=== PATIENT | male | born 1950 | race Caucasian/White ===

== ENCOUNTER 2020-04-06 19:09 | Inpatient (IN) ==
[2020-04-06] MEDS ORDERED: FUROSEMIDE 100 MG/10 ML VIAL IV STA (19:32)
[2020-04-06] MEDS ORDERED: ASPIRIN 325 MG TABLET PO STA (19:32)
[2020-04-06] MEDS ORDERED: ALBUTEROL/IPRATROPIUM 3 ML NEB RESP TX STA (19:32)
[2020-04-06] MEDS ORDERED: ONDANSETRON 4 MG/2 ML VIAL IV STA (19:32)
[2020-04-06] MEDS ORDERED: MORPHINE 4 MG/1 ML VIAL IV STA (19:32)
[2020-04-06] MEDS ORDERED: NITROGLYCERIN 2% OINT 1 INCH/GM PACK TOP STA (19:32)
[2020-04-06] MEDS ORDERED: methylPREDNISolone SOD SUC 125 MG/2 ML VIAL IV STA (19:32)
[2020-04-06 19:48] LABS: Bacteria,Urine Occasional /HPF (Few); Basophils # 0.1 10*3/uL (0.0-0.2); Basophils % 0.3 % (0.0-0.8); Bilirubin,Urine Negative (Negative); Blood, Urine Negative (Negative); Eosinophils # 0.1 10*3/uL (0.0-0.87); Eosinophils % 0.4 % (0.00-10.9); Glucose,Urine (UA) Negative (Negative); Hematocrit 39.5 VOL% (42.0-52.0); Hemoglobin 13.1 GM/DL (14.0-18.0); Immature Granulocytes % 1.4 %; Immature Granulocytes Absolute 0.24 #; Ketones,Urine Negative (Negative); Lymphocytes # 0.8 10*3/uL (1.4-4.0); Lymphocytes % 4.5 % (21.2-54.2); Mean Corpuscular HGB Conc 33.2 GM/DL (32-36); Mean Corpuscular Volume 86.2 FL (87-102); Mean Platelet Volume 11.1 FL (9.6-12.0); Monocytes % 8.3 % (1.7-12.7); Mucus,Urine Occasional /LPF (Occasional); Neutrophils % 85.1 % (38.7-73.9); Nitrite,Urine Negative (Negative); Platelet Count 385 T/CUMM (130-400); Protein,Urine 30 MG/DL; RBC,Urine 2 /HPF (0-4); Red Blood Count 4.58 MC/CUMM (3.8-5.5); Red Cell Distribution Width 14.3 % (9.3-17.3); Squamous Epithelial Cell,Urine Occasional /HPF (0-10); Urine Appearance CLEAR (Clear); Urine Color Amber (Yellow); Urine Specific Gravity 1.021 (1.001-1.035); WBC,Urine 2 /HPF (0-6); White Blood Count 16.7 T/CUMM (4-12)
[2020-04-06 19:52] LABS: INR 1.6; PT Patient Result 16.7 SECS (9.8-11.9)
[2020-04-06 20:04] LABS: ABG Base Excess 3.3 MMOL/L (-2.5-2.5); ABG Oxygen Saturation 94.4 % (95-100); ABG PCO2 29.8 MM HG (35-48); ABG PH 7.542 (7.35-7.45); ABG PO2 68.4 MM HG (80-95); ABG TCO2 25.9 MMOL/L (23-27); Allen Test Positive
[2020-04-06 20:08] LABS: Albumin 2.5 G/DL (3.4-5.0); Calcium 8.8 MG/DL (8.5-10.1); Osmolality,Calculated 269.1 MOS/KG (273-304); Potassium 3.6 MMOL/L (3.5-5.1); Total Protein 7.5 G/DL (6.4-8.3)
[2020-04-06] MEDS ORDERED: PIPERACILLIN/TAZOBACTAM 3,375 MG in SODIUM CHLORIDE 0.9% 100 ML IV STA (20:14)
[2020-04-06 20:35] LABS: Ferritin 1369.8 ng/ml (26-388)
[2020-04-06 20:56] LABS: Band Neutrophils 1 % (0-10); Lymphocytes 9 % (20-55); Platelet Estimate Normal; Segmented Neutrophils 83 % (50-85); Total Cells Counted 100
[2020-04-06] MEDS ORDERED: ALBUTEROL 2.5 MG/3 ML NEB RESP TX PRN (21:49)
[2020-04-06] MEDS ORDERED: ONDANSETRON 4 MG/2 ML VIAL IV PRN (21:49)
[2020-04-06] MEDS: LACTATED RINGERS 1,000 ML IV SCH (23:12)
[2020-04-07] MEDS: SOTALOL 80 MG TABLET PO SCH ×3 (00:47→21:11)
[2020-04-07 05:43] LABS: Basophils % 0.2 % (0.0-0.8); Hematocrit 36.3 VOL% (42.0-52.0); Hemoglobin 12.1 GM/DL (14.0-18.0); Immature Granulocytes % 0.9 %; Immature Granulocytes Absolute 0.11 #; Lymphocytes # 0.5 10*3/uL (1.4-4.0); Lymphocytes % 3.6 % (21.2-54.2); Mean Corpuscular HGB Conc 33.3 GM/DL (32-36); Mean Corpuscular Volume 86.4 FL (87-102); Mean Platelet Volume 11.3 FL (9.6-12.0); Monocytes % 2.2 % (1.7-12.7); Neutrophils % 93.1 % (38.7-73.9); Platelet Count 341 T/CUMM (130-400); Red Cell Distribution Width 14.1 % (9.3-17.3); White Blood Count 12.5 T/CUMM (4-12)
[2020-04-07 05:59] LABS: Bilirubin,Total 1.4 MG/DL (0.2-1.0); Calcium 8.5 MG/DL (8.5-10.1); Potassium 3.3 MMOL/L (3.5-5.1); Total Protein 7.2 G/DL (6.4-8.3)
[2020-04-07 06:16] LABS: Hypochromasia 1+; Lymphocytes 2 % (20-55); Microcytosis 1+; Platelet Estimate Adequate; Segmented Neutrophils 95 % (50-85); Total Cells Counted 100
[2020-04-07] MEDS ORDERED: INFLUENZA VIRUS VACCINE 0.5 ML SYRINGE IM ONE (09:00)
[2020-04-07] MEDS ORDERED: PNEUMOCOCCAL VACCINE (13 VALENT) 0.5 ML SYRINGE IM ONE (09:00)
[2020-04-07] MEDS ORDERED: REMDESIVIR 200 MG in SODIUM CHLORIDE 0.9% 210 ML IV ONE (09:00)
[2020-04-07] MEDS: ASPIRIN EC 81 MG TABLET PO SCH (09:16)
[2020-04-07] MEDS: PANTOPRAZOLE 40 MG TABLET PO SCH (09:16)
[2020-04-07] MEDS: RIVAROXABAN 20 MG TABLET PO SCH (09:17)
[2020-04-07] MEDS: DEXAMETHASONE 4 MG/1 ML VIAL IV SCH (09:27)
[2020-04-07] MEDS: LACTATED RINGERS 1,000 ML IV SCH ×2 (09:28→18:47)
[2020-04-07] MEDS ORDERED: SODIUM CHLORIDE 0.9% 1,000 ML IV PRN (14:32)
[2020-04-07] MEDS: MORPHINE 4 MG/1 ML VIAL IV PRN (21:10)
[2020-04-07] MEDS: ATORVASTATIN 40 MG TABLET PO SCH (21:12)
[2020-04-08] MEDS: LACTATED RINGERS 1,000 ML IV SCH ×3 (00:59→22:33)
[2020-04-08] MEDS: MORPHINE 4 MG/1 ML VIAL IV PRN (01:00)
[2020-04-08] MEDS: DEXAMETHASONE 4 MG/1 ML VIAL IV SCH (10:18)
[2020-04-08] MEDS: ASPIRIN EC 81 MG TABLET PO SCH (10:18)
[2020-04-08] MEDS: SOTALOL 80 MG TABLET PO SCH ×2 (10:18→20:33)
[2020-04-08] MEDS: RIVAROXABAN 20 MG TABLET PO SCH (10:18)
[2020-04-08] MEDS: PANTOPRAZOLE 40 MG TABLET PO SCH (10:18)
[2020-04-08] MEDS: REMDESIVIR 100 MG in SODIUM CHLORIDE 0.9% 100 ML IV SCH (10:47)
[2020-04-08] MEDS: POTASSIUM CHLORIDE RIDER 10 MEQ in PREMIX 1 EACH IV PRN ×3 (11:12→13:45)
[2020-04-08] MEDS: ATORVASTATIN 40 MG TABLET PO SCH (20:34)
[2020-04-09] MEDS: guaiFENesin/CODEINE 5 ML LIQUID PO PRN ×2 (03:20→20:37)
[2020-04-09 04:40] LABS: Basophils % 0.1 % (0.0-0.8); Eosinophils # 0.1 10*3/uL (0.0-0.87); Eosinophils % 0.4 % (0.00-10.9); Hematocrit 37.7 VOL% (42.0-52.0); Hemoglobin 11.9 GM/DL (14.0-18.0); Immature Granulocytes Absolute 0.15 #; Lymphocytes # 0.9 10*3/uL (1.4-4.0); Lymphocytes % 5.8 % (21.2-54.2); Mean Corpuscular HGB Conc 31.6 GM/DL (32-36); Mean Corpuscular Volume 91.3 FL (87-102); Mean Platelet Volume 11.3 FL (9.6-12.0); Monocytes % 8.4 % (1.7-12.7); Neutrophils % 84.3 % (38.7-73.9); Platelet Count 380 T/CUMM (130-400); Red Blood Count 4.13 MC/CUMM (3.8-5.5); Red Cell Distribution Width 14.7 % (9.3-17.3); White Blood Count 15.7 T/CUMM (4-12)
[2020-04-09 04:57] LABS: Albumin 2.2 G/DL (3.4-5.0); Bilirubin,Total 0.8 MG/DL (0.2-1.0); Calcium 8.6 MG/DL (8.5-10.1); Osmolality,Calculated 278.7 MOS/KG (273-304); Potassium 3.9 MMOL/L (3.5-5.1); Total Protein 7.1 G/DL (6.4-8.3)
[2020-04-09] MEDS: LACTATED RINGERS 1,000 ML IV SCH ×2 (06:47→13:18)
[2020-04-09] MEDS: PANTOPRAZOLE 40 MG TABLET PO SCH (09:07)
[2020-04-09] MEDS: SOTALOL 80 MG TABLET PO SCH ×2 (09:07→20:37)
[2020-04-09] MEDS: ASPIRIN EC 81 MG TABLET PO SCH (09:07)
[2020-04-09] MEDS: REMDESIVIR 100 MG in SODIUM CHLORIDE 0.9% 100 ML IV SCH (09:07)
[2020-04-09] MEDS: DEXAMETHASONE 4 MG/1 ML VIAL IV SCH (09:07)
[2020-04-09] MEDS: RIVAROXABAN 20 MG TABLET PO SCH (09:08)
[2020-04-09] MEDS: ACETAMINOPHEN 325 MG TABLET PO PRN (20:38)
[2020-04-09] MEDS: ATORVASTATIN 40 MG TABLET PO SCH (20:38)
[2020-04-10] MEDS: guaiFENesin/CODEINE 5 ML LIQUID PO PRN (00:40)
[2020-04-10] MEDS ORDERED: ALBUTEROL INHALER 18 GM INH PRN (04:46)
[2020-04-10] MEDS: ALBUTEROL INHALER 18 GM INH SCH ×4 (08:07→20:55)
[2020-04-10] MEDS: ASPIRIN EC 81 MG TABLET PO SCH (08:07)
[2020-04-10] MEDS: DEXAMETHASONE 4 MG/1 ML VIAL IV SCH (08:08)
[2020-04-10] MEDS: PANTOPRAZOLE 40 MG TABLET PO SCH (08:08)
[2020-04-10] MEDS: SOTALOL 80 MG TABLET PO SCH ×2 (08:08→20:56)
[2020-04-10] MEDS: RIVAROXABAN 20 MG TABLET PO SCH (08:08)
[2020-04-10 09:16] LABS: Basophils % 0.2 % (0.0-0.8); Eosinophils # 0.2 10*3/uL (0.0-0.87); Eosinophils % 1.6 % (0.00-10.9); Hematocrit 41.9 VOL% (42.0-52.0); Hemoglobin 13.2 GM/DL (14.0-18.0); Immature Granulocytes % 0.9 %; Immature Granulocytes Absolute 0.12 #; Lymphocytes # 0.6 10*3/uL (1.4-4.0); Lymphocytes % 4.3 % (21.2-54.2); Mean Corpuscular HGB Conc 31.5 GM/DL (32-36); Mean Corpuscular Volume 91.5 FL (87-102); Mean Platelet Volume 11.7 FL (9.6-12.0); Monocytes % 6.5 % (1.7-12.7); Neutrophils % 86.5 % (38.7-73.9); Platelet Count 322 T/CUMM (130-400); Red Blood Count 4.58 MC/CUMM (3.8-5.5); Red Cell Distribution Width 14.9 % (9.3-17.3); White Blood Count 13.3 T/CUMM (4-12)
[2020-04-10 09:21] LABS: Hypochromasia 1+; Lymphocytes 5 % (20-55); Microcytosis 1+; Segmented Neutrophils 89 % (50-85); Total Cells Counted 100
[2020-04-10 09:51] LABS: Albumin 2.1 G/DL (3.4-5.0); Bilirubin,Total 1.5 MG/DL (0.2-1.0); Total Protein 7.7 G/DL (6.4-8.3)
[2020-04-10] MEDS: REMDESIVIR 100 MG in SODIUM CHLORIDE 0.9% 100 ML IV SCH (12:44)
[2020-04-10] MEDS: ACETAMINOPHEN 325 MG TABLET PO PRN (20:56)
[2020-04-10] MEDS: ATORVASTATIN 40 MG TABLET PO SCH (20:56)
[2020-04-11] MEDS: ALBUTEROL INHALER 18 GM INH SCH ×6 (00:15→21:25)
[2020-04-11] MEDS: MORPHINE 4 MG/1 ML VIAL IV PRN ×2 (02:59→21:26)
[2020-04-11] MEDS: DEXAMETHASONE 4 MG/1 ML VIAL IV SCH (08:11)
[2020-04-11] MEDS: SOTALOL 80 MG TABLET PO SCH ×2 (08:11→21:26)
[2020-04-11] MEDS: ASPIRIN EC 81 MG TABLET PO SCH (08:11)
[2020-04-11] MEDS: RIVAROXABAN 20 MG TABLET PO SCH (08:12)
[2020-04-11] MEDS: PANTOPRAZOLE 40 MG TABLET PO SCH (08:12)
[2020-04-11] MEDS ORDERED: LOSARTAN 50 MG TABLET PO ONE (08:21)
[2020-04-11] MEDS: REMDESIVIR 100 MG in SODIUM CHLORIDE 0.9% 100 ML IV SCH (09:47)
[2020-04-11] MEDS: ATORVASTATIN 40 MG TABLET PO SCH (21:26)
[2020-04-11] MEDS ORDERED: ETOMIDATE 20 MG/10 ML VIAL IV ONE (22:27)
[2020-04-11] MEDS ORDERED: ROCURONIUM 100 MG/10 ML VIAL IV ONE (22:27)
[2020-04-11 22:28] LABS: ABG Base Excess 4.4 MMOL/L (-2.5-2.5); ABG Oxygen Saturation 79.6 % (95-100); ABG PCO2 42.4 MM HG (35-48); ABG PH 7.444 (7.35-7.45); ABG PO2 47.6 MM HG (80-95); ABG TCO2 25.4 MMOL/L (23-27)
[2020-04-11] MEDS ORDERED: AZITHROMYCIN INJ 500 MG in SODIUM CHLORIDE 0.9% 250 ML IV ONE (22:48)
[2020-04-11] MEDS ORDERED: MELATONIN 3 MG TABLET PO PRN (22:48)
[2020-04-11] MEDS ORDERED: hydrALAZINE 20 MG/1 ML VIAL IV ONE (22:51)
[2020-04-11] MEDS ORDERED: FUROSEMIDE 40 MG/4 ML VIAL IV ONE (22:51)
[2020-04-11] MEDS ORDERED: FUROSEMIDE 20 MG/2 ML VIAL IV ONE (23:18)
[2020-04-11 23:39] LABS: Bilirubin,Urine Negative (Negative); Blood, Urine Large mg/dL (Negative); Glucose,Urine (UA) Negative (Negative); Ketones,Urine Negative (Negative); Mucus,Urine Occasional /LPF (Occasional); Nitrite,Urine Negative (Negative); Protein,Urine 30 MG/DL; RBC,Urine 553 /HPF (0-4); Urine Appearance CLOUDY (Clear); Urine Color Amber (Yellow); Urine Specific Gravity 1.023 (1.001-1.035); WBC,Urine 9 /HPF (0-6)
[2020-04-12] MEDS: ALBUTEROL INHALER 18 GM INH SCH ×7 (00:15→22:51)
[2020-04-12] MEDS ORDERED: ETOMIDATE 20 MG/10 ML VIAL IV ONE ×3 (03:20→03:48)
[2020-04-12] MEDS ORDERED: SUCCINYLCHOLINE 200 MG/10 ML VIAL ONE (03:21)
[2020-04-12] MEDS ORDERED: ROCURONIUM 100 MG/10 ML VIAL IV ONE ×2 (03:23→03:48)
[2020-04-12] MEDS ORDERED: propofoL 200 MG/20 ML VIAL IV ONE (03:48)
[2020-04-12 04:16] LABS: ABG HCO3 27.8 MMOL/L (20-26); ABG Oxygen Saturation 86.2 % (95-100); ABG PCO2 60.3 MM HG (35-48); ABG PH 7.332 (7.35-7.45); ABG PO2 61.5 MM HG (80-95); ABG TCO2 28.3 MMOL/L (23-27); Allen Test Positive; Pt O2 Delivery Device Ventilator
[2020-04-12 04:21] LABS: Basophils % 0.1 % (0.0-0.8); Eosinophils % 0.1 % (0.00-10.9); Hematocrit 39.5 VOL% (42.0-52.0); Hemoglobin 12.9 GM/DL (14.0-18.0); Immature Granulocytes % 1.1 %; Immature Granulocytes Absolute 0.24 #; Lymphocytes # 0.6 10*3/uL (1.4-4.0); Lymphocytes % 2.6 % (21.2-54.2); Mean Corpuscular HGB Conc 32.7 GM/DL (32-36); Mean Corpuscular Volume 88.8 FL (87-102); Mean Platelet Volume 11.1 FL (9.6-12.0); Monocytes % 4.5 % (1.7-12.7); Neutrophils % 91.6 % (38.7-73.9); Platelet Count 421 T/CUMM (130-400); Red Blood Count 4.45 MC/CUMM (3.8-5.5); Red Cell Distribution Width 14.9 % (9.3-17.3); White Blood Count 22.2 T/CUMM (4-12)
[2020-04-12 04:43] LABS: Calcium 8.9 MG/DL (8.5-10.1); Osmolality,Calculated 282.5 MOS/KG (273-304); Potassium 3.5 MMOL/L (3.5-5.1)
[2020-04-12 04:54] LABS: Lymphocytes 1 % (20-55); Segmented Neutrophils 94 % (50-85); Total Cells Counted 100
[2020-04-12 04:55] LABS: Platelet Estimate Adequate
[2020-04-12] MEDS ORDERED: PHENYLEPHRINE DRIP 40 MG/250 ML PREMIX IV PRN (06:08)
[2020-04-12] MEDS: SOTALOL 80 MG TABLET PO SCH ×2 (09:00→20:05)
[2020-04-12 09:09] LABS: Pt O2 Delivery Device Ventilator
[2020-04-12 09:10] LABS: ABG HCO3 28.8 MMOL/L (20-26); ABG Oxygen Saturation 96.8 % (95-100); ABG PCO2 57.5 MM HG (35-48); ABG PH 7.355 (7.35-7.45); ABG PO2 98.5 MM HG (80-95); ABG TCO2 28.7 MMOL/L (23-27)
[2020-04-12] MEDS: ASPIRIN EC 81 MG TABLET PO SCH (09:15)
[2020-04-12] MEDS: LOSARTAN 50 MG TABLET PO SCH (09:15)
[2020-04-12] MEDS: ASCORBIC ACID 500 MG TABLET PO SCH ×2 (09:15→20:05)
[2020-04-12] MEDS: RIVAROXABAN 20 MG TABLET PO SCH (09:15)
[2020-04-12] MEDS: CETIRIZINE 10 MG TABLET PO SCH (09:15)
[2020-04-12] MEDS: CHOLECALCIFEROL 1,000 UNIT TABLET PO SCH (09:15)
[2020-04-12] MEDS: ZINC GLUCONATE 50 MG TABLET PO SCH (09:15)
[2020-04-12] MEDS: PANTOPRAZOLE 40 MG TABLET PO SCH (09:15)
[2020-04-12] MEDS: AZITHROMYCIN 250 MG TABLET PO SCH (09:15)
[2020-04-12] MEDS: DEXAMETHASONE 4 MG/1 ML VIAL IV SCH (09:20)
[2020-04-12] MEDS ORDERED: ALBUTEROL INHALER 18 GM INH PRN (14:36)
[2020-04-12] MEDS: SODIUM CHLORIDE 0.9% 1,000 ML IV SCH (14:48)
[2020-04-12] MEDS: ATORVASTATIN 40 MG TABLET PO SCH (20:05)
[2020-04-13] MEDS: SODIUM CHLORIDE 0.9% 1,000 ML IV SCH ×2 (00:15→15:05)
[2020-04-13] MEDS: ALBUTEROL INHALER 18 GM INH SCH ×5 (03:08→18:59)
[2020-04-13 05:07] LABS: ABG HCO3 28.9 MMOL/L (20-26); ABG Oxygen Saturation 99.1 % (95-100); ABG PH 7.392 (7.35-7.45); ABG TCO2 27.9 MMOL/L (23-27); Allen Test Positive; Pt O2 Delivery Device Ventilator
[2020-04-13 05:25] LABS: Basophils # 0.1 10*3/uL (0.0-0.2); Basophils % 0.4 % (0.0-0.8); Hematocrit 35.6 VOL% (42.0-52.0); Hemoglobin 11.3 GM/DL (14.0-18.0); Immature Granulocytes % 1.2 %; Immature Granulocytes Absolute 0.22 #; Lymphocytes # 0.7 10*3/uL (1.4-4.0); Lymphocytes % 3.8 % (21.2-54.2); Mean Corpuscular HGB Conc 31.7 GM/DL (32-36); Mean Corpuscular Volume 90.8 FL (87-102); Mean Platelet Volume 11.7 FL (9.6-12.0); Monocytes % 6.4 % (1.7-12.7); Neutrophils % 88.2 % (38.7-73.9); Platelet Count 361 T/CUMM (130-400); Red Blood Count 3.92 MC/CUMM (3.8-5.5); Red Cell Distribution Width 15.3 % (9.3-17.3); White Blood Count 18.3 T/CUMM (4-12)
[2020-04-13 05:45] LABS: Hypochromasia Slight; Lymphocytes 4 % (20-55); Microcytosis Slight; Ovalocytes Slight; Platelet Estimate Adequate; Segmented Neutrophils 89 % (50-85); Total Cells Counted 100
[2020-04-13 06:02] LABS: Albumin 1.6 G/DL (3.4-5.0); Bilirubin,Total 0.8 MG/DL (0.2-1.0); Calcium 8.5 MG/DL (8.5-10.1); Ferritin 1656.4 ng/ml (26-388); Osmolality,Calculated 284.7 MOS/KG (273-304); Potassium 4.3 MMOL/L (3.5-5.1); Total Protein 6.3 G/DL (6.4-8.3)
[2020-04-13] MEDS: SOTALOL 80 MG TABLET PO SCH ×2 (09:30→20:06)
[2020-04-13] MEDS: ASPIRIN EC 81 MG TABLET PO SCH (09:30)
[2020-04-13] MEDS: AZITHROMYCIN 250 MG TABLET PO SCH (09:31)
[2020-04-13] MEDS: CHOLECALCIFEROL 1,000 UNIT TABLET PO SCH (09:31)
[2020-04-13] MEDS: PANTOPRAZOLE 40 MG TABLET PO SCH (09:31)
[2020-04-13] MEDS: ASCORBIC ACID 500 MG TABLET PO SCH ×2 (09:31→20:06)
[2020-04-13] MEDS: ZINC GLUCONATE 50 MG TABLET PO SCH (09:31)
[2020-04-13] MEDS: DEXAMETHASONE 4 MG/1 ML VIAL IV SCH (09:32)
[2020-04-13] MEDS: RIVAROXABAN 20 MG TABLET PO SCH (09:32)
[2020-04-13] MEDS: LOSARTAN 50 MG TABLET PO SCH (09:32)
[2020-04-13] MEDS: CETIRIZINE 10 MG TABLET PO SCH (09:36)
[2020-04-13] MEDS ORDERED: GLUCAGON 1 MG VIAL IM PRN (10:59)
[2020-04-13] MEDS ORDERED: DEXTROSE 50% 25 GM/50 ML VIAL IV PRN (10:59)
[2020-04-13] MEDS: FUROSEMIDE 40 MG/4 ML VIAL IV SCH (14:00)
[2020-04-13] MEDS: INSULIN REGULAR 100 UNIT/ML SUBCUT SCH ×2 (15:04→18:58)
[2020-04-13] MEDS: METOCLOPRAMIDE 10 MG/2 ML VIAL IV SCH (19:00)
[2020-04-13] MEDS: ATORVASTATIN 40 MG TABLET PO SCH (20:06)
[2020-04-14] MEDS: ALBUTEROL INHALER 18 GM INH SCH ×7 (00:08→23:22)
[2020-04-14] MEDS: INSULIN REGULAR 100 UNIT/ML SUBCUT SCH ×4 (00:08→17:48)
[2020-04-14] MEDS: METOCLOPRAMIDE 10 MG/2 ML VIAL IV SCH ×4 (00:14→17:48)
[2020-04-14 04:58] LABS: Basophils % 0.1 % (0.0-0.8); Eosinophils % 0.1 % (0.00-10.9); Hematocrit 36.7 VOL% (42.0-52.0); Hemoglobin 11.7 GM/DL (14.0-18.0); Immature Granulocytes % 1.4 %; Immature Granulocytes Absolute 0.28 #; Lymphocytes # 0.8 10*3/uL (1.4-4.0); Lymphocytes % 3.8 % (21.2-54.2); Mean Corpuscular HGB Conc 31.9 GM/DL (32-36); Mean Platelet Volume 11.3 FL (9.6-12.0); Monocytes % 9.2 % (1.7-12.7); Neutrophils % 85.4 % (38.7-73.9); Platelet Count 383 T/CUMM (130-400); Red Blood Count 4.08 MC/CUMM (3.8-5.5); Red Cell Distribution Width 15.2 % (9.3-17.3)
[2020-04-14 05:13] LABS: INR 1.3; PT Patient Result 13.3 SECS (9.8-11.9)
[2020-04-14 05:21] LABS: Hypochromasia 1+; Lymphocytes 1 % (20-55); Microcytosis 1+; Platelet Estimate Adequate; Segmented Neutrophils 92 % (50-85); Total Cells Counted 100
[2020-04-14 05:25] LABS: Ferritin 1876.9 ng/ml (26-388)
[2020-04-14 05:27] LABS: Albumin 1.7 G/DL (3.4-5.0); Bilirubin,Total 0.9 MG/DL (0.2-1.0); Calcium 8.4 MG/DL (8.5-10.1); Osmolality,Calculated 287.4 MOS/KG (273-304); Total Protein 6.5 G/DL (6.4-8.3)
[2020-04-14 07:55] LABS: ABG Base Excess 7.4 MMOL/L (-2.5-2.5); ABG HCO3 31.1 MMOL/L (20-26); ABG Oxygen Saturation 92.6 % (95-100); ABG PCO2 52.6 MM HG (35-48); ABG PH 7.413 (7.35-7.45); ABG PO2 67.9 MM HG (80-95); ABG TCO2 29.8 MMOL/L (23-27)
[2020-04-14] MEDS: SOTALOL 80 MG TABLET PO SCH ×2 (08:57→20:03)
[2020-04-14] MEDS: ASCORBIC ACID 500 MG TABLET PO SCH ×2 (08:57→20:03)
[2020-04-14] MEDS: ZINC GLUCONATE 50 MG TABLET PO SCH (08:57)
[2020-04-14] MEDS: POLYETHYLENE GLYCOL POWDER 17 GM PACK PO SCH (08:57)
[2020-04-14] MEDS: CHOLECALCIFEROL 1,000 UNIT TABLET PO SCH (08:57)
[2020-04-14] MEDS: RIVAROXABAN 20 MG TABLET PO SCH (08:57)
[2020-04-14] MEDS: AZITHROMYCIN 250 MG TABLET PO SCH (08:57)
[2020-04-14] MEDS: ASPIRIN EC 81 MG TABLET PO SCH (08:57)
[2020-04-14] MEDS: PANTOPRAZOLE 40 MG TABLET PO SCH (08:57)
[2020-04-14] MEDS: DEXAMETHASONE 4 MG/1 ML VIAL IV SCH (09:00)
[2020-04-14] MEDS: FUROSEMIDE 40 MG/4 ML VIAL IV SCH (09:00)
[2020-04-14] MEDS: ATORVASTATIN 40 MG TABLET PO SCH (20:03)
[2020-04-15] MEDS: INSULIN REGULAR 100 UNIT/ML SUBCUT SCH ×4 (00:33→17:27)
[2020-04-15] MEDS: METOCLOPRAMIDE 10 MG/2 ML VIAL IV SCH ×4 (00:33→17:27)
[2020-04-15] MEDS: ALBUTEROL INHALER 18 GM INH SCH ×6 (04:29→23:12)
[2020-04-15 04:57] LABS: ABG Base Excess 10.9 MMOL/L (-2.5-2.5); ABG HCO3 36.9 MMOL/L (20-26); ABG Oxygen Saturation 98.1 % (95-100); ABG PCO2 54.9 MM HG (35-48); ABG PH 7.445 (7.35-7.45); ABG PO2 108.8 MM HG (80-95); ABG TCO2 38.6 MMOL/L (23-27); Allen Test Positive; Pt O2 Delivery Device Ventilator
[2020-04-15 05:09] LABS: Basophils % 0.2 % (0.0-0.8); Eosinophils # 0.1 10*3/uL (0.0-0.87); Eosinophils % 0.3 % (0.00-10.9); Hemoglobin 11.9 GM/DL (14.0-18.0); Immature Granulocytes % 1.3 %; Immature Granulocytes Absolute 0.23 #; Lymphocytes # 0.7 10*3/uL (1.4-4.0); Lymphocytes % 3.9 % (21.2-54.2); Mean Corpuscular HGB Conc 31.3 GM/DL (32-36); Mean Corpuscular Volume 89.2 FL (87-102); Mean Platelet Volume 11.6 FL (9.6-12.0); Monocytes % 10.6 % (1.7-12.7); Neutrophils % 83.7 % (38.7-73.9); Platelet Count 367 T/CUMM (130-400); Red Blood Count 4.26 MC/CUMM (3.8-5.5); Red Cell Distribution Width 15.2 % (9.3-17.3); White Blood Count 18.4 T/CUMM (4-12)
[2020-04-15 05:37] LABS: Calcium 8.6 MG/DL (8.5-10.1); Osmolality,Calculated 285.5 MOS/KG (273-304)
[2020-04-15 05:40] LABS: Eosinophils 1 % (0-10); Hypochromasia 1+; Lymphocytes 1 % (20-55); Microcytosis 1+; Platelet Estimate Adequate; Segmented Neutrophils 89 % (50-85); Total Cells Counted 100
[2020-04-15] MEDS: CHOLECALCIFEROL 1,000 UNIT TABLET PO SCH (08:09)
[2020-04-15] MEDS: SOTALOL 80 MG TABLET PO SCH ×2 (08:09→20:43)
[2020-04-15] MEDS: RIVAROXABAN 20 MG TABLET PO SCH (08:09)
[2020-04-15] MEDS: ASCORBIC ACID 500 MG TABLET PO SCH ×2 (08:09→20:43)
[2020-04-15] MEDS: AZITHROMYCIN 250 MG TABLET PO SCH (08:10)
[2020-04-15] MEDS: POLYETHYLENE GLYCOL POWDER 17 GM PACK PO SCH (08:10)
[2020-04-15] MEDS: DEXAMETHASONE 4 MG/1 ML VIAL IV SCH (08:10)
[2020-04-15] MEDS: FUROSEMIDE 40 MG/4 ML VIAL IV SCH (08:10)
[2020-04-15] MEDS: ZINC GLUCONATE 50 MG TABLET PO SCH (08:10)
[2020-04-15] MEDS: ASPIRIN CHEW 81 MG TABLET PO SCH (09:19)
[2020-04-15] MEDS: PANTOPRAZOLE 40 MG VIAL IV SCH (09:19)
[2020-04-15] MEDS: ATORVASTATIN 40 MG TABLET PO SCH (20:43)
[2020-04-16] MEDS: INSULIN REGULAR 100 UNIT/ML SUBCUT SCH ×4 (00:50→17:32)
[2020-04-16] MEDS: METOCLOPRAMIDE 10 MG/2 ML VIAL IV SCH ×4 (00:50→17:14)
[2020-04-16] MEDS: ALBUTEROL INHALER 18 GM INH SCH ×6 (02:57→23:09)
[2020-04-16 03:30] LABS: ABG Base Excess 8.2 MMOL/L (-2.5-2.5); ABG Oxygen Saturation 97.8 % (95-100); ABG PCO2 55.2 MM HG (35-48); ABG PH 7.406 (7.35-7.45); ABG TCO2 31.1 MMOL/L (23-27)
[2020-04-16 04:19] LABS: Basophils % 0.2 % (0.0-0.8); Eosinophils # 0.1 10*3/uL (0.0-0.87); Eosinophils % 0.8 % (0.00-10.9); Hematocrit 35.8 VOL% (42.0-52.0); Hemoglobin 11.3 GM/DL (14.0-18.0); Immature Granulocytes % 1.4 %; Immature Granulocytes Absolute 0.22 #; Lymphocytes # 0.9 10*3/uL (1.4-4.0); Lymphocytes % 5.3 % (21.2-54.2); Mean Corpuscular HGB Conc 31.6 GM/DL (32-36); Mean Corpuscular Volume 91.8 FL (87-102); Mean Platelet Volume 11.6 FL (9.6-12.0); Monocytes % 11.1 % (1.7-12.7); Neutrophils % 81.2 % (38.7-73.9); Platelet Count 284 T/CUMM (130-400); Red Cell Distribution Width 15.1 % (9.3-17.3); White Blood Count 16.3 T/CUMM (4-12)
[2020-04-16 04:56] LABS: Albumin 1.7 G/DL (3.4-5.0); Bilirubin,Total 1.1 MG/DL (0.2-1.0); Calcium 8.6 MG/DL (8.5-10.1); Ferritin 2528.3 ng/ml (26-388); Osmolality,Calculated 286.5 MOS/KG (273-304); Total Protein 6.5 G/DL (6.4-8.3)
[2020-04-16] MEDS: SOTALOL 80 MG TABLET PO SCH ×2 (08:02→20:08)
[2020-04-16] MEDS: CHOLECALCIFEROL 1,000 UNIT TABLET PO SCH (08:02)
[2020-04-16] MEDS: ASPIRIN CHEW 81 MG TABLET PO SCH (08:02)
[2020-04-16] MEDS: ASCORBIC ACID 500 MG TABLET PO SCH ×2 (08:02→20:08)
[2020-04-16] MEDS: RIVAROXABAN 20 MG TABLET PO SCH (08:02)
[2020-04-16] MEDS: ZINC GLUCONATE 50 MG TABLET PO SCH (08:02)
[2020-04-16] MEDS: PANTOPRAZOLE 40 MG VIAL IV SCH (08:03)
[2020-04-16] MEDS: FUROSEMIDE 40 MG/4 ML VIAL IV SCH (08:03)
[2020-04-16] MEDS: DEXAMETHASONE 4 MG/1 ML VIAL IV SCH (08:03)
[2020-04-16] MEDS: POLYETHYLENE GLYCOL POWDER 17 GM PACK PO SCH (08:04)
[2020-04-16] MEDS: ATORVASTATIN 40 MG TABLET PO SCH (20:07)
[2020-04-17] MEDS: INSULIN REGULAR 100 UNIT/ML SUBCUT SCH ×5 (01:50→23:48)
[2020-04-17] MEDS: METOCLOPRAMIDE 10 MG/2 ML VIAL IV SCH ×5 (02:06→23:46)
[2020-04-17] MEDS: ALBUTEROL INHALER 18 GM INH SCH ×6 (02:07→22:26)
[2020-04-17 03:44] LABS: ABG Base Excess 6.6 MMOL/L (-2.5-2.5); ABG HCO3 30.4 MMOL/L (20-26); ABG PCO2 51.2 MM HG (35-48); ABG PH 7.411 (7.35-7.45)
[2020-04-17 05:12] LABS: Basophils % 0.2 % (0.0-0.8); Eosinophils # 0.1 10*3/uL (0.0-0.87); Eosinophils % 0.4 % (0.00-10.9); Hematocrit 36.2 VOL% (42.0-52.0); Hemoglobin 11.6 GM/DL (14.0-18.0); Immature Granulocytes Absolute 0.38 #; Lymphocytes # 0.8 10*3/uL (1.4-4.0); Lymphocytes % 4.3 % (21.2-54.2); Mean Corpuscular Volume 90.5 FL (87-102); Mean Platelet Volume 11.9 FL (9.6-12.0); Monocytes % 10.2 % (1.7-12.7); Neutrophils % 82.9 % (38.7-73.9); Platelet Count 260 T/CUMM (130-400); Red Cell Distribution Width 15.1 % (9.3-17.3); White Blood Count 18.9 T/CUMM (4-12)
[2020-04-17 05:42] LABS: Albumin 1.8 G/DL (3.4-5.0); Bilirubin,Total 0.8 MG/DL (0.2-1.0); Calcium 9.1 MG/DL (8.5-10.1); Osmolality,Calculated 286.7 MOS/KG (273-304)
[2020-04-17 06:16] LABS: Hypochromasia 1+; Lymphocytes 5 % (20-55); Segmented Neutrophils 83 % (50-85); Total Cells Counted 100
[2020-04-17 06:17] LABS: Microcytosis 1+; Ovalocytes Slight; Platelet Estimate Normal; Target Cells Slight
[2020-04-17] MEDS: CHOLECALCIFEROL 1,000 UNIT TABLET PO SCH (08:47)
[2020-04-17] MEDS: POLYETHYLENE GLYCOL POWDER 17 GM PACK PO SCH (08:47)
[2020-04-17] MEDS: ZINC GLUCONATE 50 MG TABLET PO SCH (08:47)
[2020-04-17] MEDS: RIVAROXABAN 20 MG TABLET PO SCH (08:48)
[2020-04-17] MEDS: SOTALOL 80 MG TABLET PO SCH ×2 (08:48→20:23)
[2020-04-17] MEDS: ASPIRIN CHEW 81 MG TABLET PO SCH (08:49)
[2020-04-17] MEDS: ASCORBIC ACID 500 MG TABLET PO SCH ×2 (08:49→20:23)
[2020-04-17] MEDS: FUROSEMIDE 40 MG/4 ML VIAL IV SCH (08:50)
[2020-04-17] MEDS: PANTOPRAZOLE 40 MG VIAL IV SCH (08:51)
[2020-04-17] MEDS: ATORVASTATIN 40 MG TABLET PO SCH (20:23)
[2020-04-18] MEDS: ALBUTEROL INHALER 18 GM INH SCH ×3 (03:38→11:12)
[2020-04-18 03:58] LABS: Basophils % 0.2 % (0.0-0.8); Eosinophils # 0.3 10*3/uL (0.0-0.87); Eosinophils % 1.8 % (0.00-10.9); Hematocrit 36.7 VOL% (42.0-52.0); Hemoglobin 11.3 GM/DL (14.0-18.0); Immature Granulocytes % 2.2 %; Lymphocytes # 0.9 10*3/uL (1.4-4.0); Lymphocytes % 5.1 % (21.2-54.2); Mean Corpuscular HGB Conc 30.8 GM/DL (32-36); Mean Corpuscular Volume 92.7 FL (87-102); Mean Platelet Volume 11.8 FL (9.6-12.0); Monocytes % 10.1 % (1.7-12.7); Neutrophils % 80.6 % (38.7-73.9); Platelet Count 275 T/CUMM (130-400); Red Blood Count 3.96 MC/CUMM (3.8-5.5); Red Cell Distribution Width 15.2 % (9.3-17.3); White Blood Count 18.6 T/CUMM (4-12)
[2020-04-18 04:14] LABS: ABG Base Excess 5.6 MMOL/L (-2.5-2.5); ABG HCO3 29.5 MMOL/L (20-26); ABG Oxygen Saturation 98.5 % (95-100); ABG PCO2 52.4 MM HG (35-48); ABG PH 7.392 (7.35-7.45); ABG TCO2 28.3 MMOL/L (23-27); Allen Test Positive; Pt O2 Delivery Device Ventilator
[2020-04-18 04:59] LABS: Calcium 9.2 MG/DL (8.5-10.1); Ferritin 3314.5 ng/ml (26-388); Osmolality,Calculated 285.8 MOS/KG (273-304); Potassium 4.1 MMOL/L (3.5-5.1)
[2020-04-18] MEDS: INSULIN REGULAR 100 UNIT/ML SUBCUT SCH ×3 (05:12→18:59)
[2020-04-18] MEDS: METOCLOPRAMIDE 10 MG/2 ML VIAL IV SCH ×4 (06:20→19:48)
[2020-04-18] MEDS: ASPIRIN CHEW 81 MG TABLET PO SCH (08:39)
[2020-04-18] MEDS: ZINC GLUCONATE 50 MG TABLET PO SCH (08:39)
[2020-04-18] MEDS: DEXAMETHASONE 4 MG/1 ML VIAL IV SCH (08:39)
[2020-04-18] MEDS: POLYETHYLENE GLYCOL POWDER 17 GM PACK PO SCH (08:39)
[2020-04-18] MEDS: RIVAROXABAN 20 MG TABLET PO SCH (08:40)
[2020-04-18] MEDS: CHOLECALCIFEROL 1,000 UNIT TABLET PO SCH (08:40)
[2020-04-18] MEDS: ASCORBIC ACID 500 MG TABLET PO SCH ×2 (08:40→20:00)
[2020-04-18] MEDS: SOTALOL 80 MG TABLET PO SCH ×2 (08:40→20:00)
[2020-04-18] MEDS: PANTOPRAZOLE 40 MG VIAL IV SCH (08:41)
[2020-04-18] MEDS: FUROSEMIDE 40 MG/4 ML VIAL IV SCH (08:41)
[2020-04-18] MEDS: FAMOTIDINE 20 MG/2 ML VIAL IV SCH ×2 (15:39→19:48)
[2020-04-18] MEDS: ATORVASTATIN 40 MG TABLET PO SCH (20:01)
[2020-04-19] MEDS: METOCLOPRAMIDE 10 MG/2 ML VIAL IV SCH ×4 (00:53→18:20)
[2020-04-19] MEDS: INSULIN REGULAR 100 UNIT/ML SUBCUT SCH ×4 (00:57→18:20)
[2020-04-19] MEDS: FAMOTIDINE 20 MG/2 ML VIAL IV SCH ×2 (01:43→12:02)
[2020-04-19 03:50] LABS: Basophils % 0.2 % (0.0-0.8); Eosinophils # 0.1 10*3/uL (0.0-0.87); Eosinophils % 0.4 % (0.00-10.9); Hematocrit 33.8 VOL% (42.0-52.0); Hemoglobin 10.6 GM/DL (14.0-18.0); Immature Granulocytes % 1.9 %; Immature Granulocytes Absolute 0.33 #; Lymphocytes # 0.9 10*3/uL (1.4-4.0); Lymphocytes % 5.2 % (21.2-54.2); Mean Corpuscular HGB Conc 31.4 GM/DL (32-36); Mean Corpuscular Volume 91.6 FL (87-102); Mean Platelet Volume 11.9 FL (9.6-12.0); Monocytes % 9.2 % (1.7-12.7); Neutrophils % 83.1 % (38.7-73.9); Platelet Count 249 T/CUMM (130-400); Red Blood Count 3.69 MC/CUMM (3.8-5.5); Red Cell Distribution Width 15.3 % (9.3-17.3); White Blood Count 17.7 T/CUMM (4-12)
[2020-04-19 03:53] LABS: ABG Base Excess 4.3 MMOL/L (-2.5-2.5); ABG HCO3 29.5 MMOL/L (20-26); ABG Oxygen Saturation 97.8 % (95-100); ABG PCO2 46.7 MM HG (35-48); ABG PH 7.418 (7.35-7.45); ABG PO2 107.6 MM HG (80-95); ABG TCO2 30.9 MMOL/L (23-27); Allen Test Positive; Pt O2 Delivery Device Ventilator
[2020-04-19 03:57] LABS: Albumin 1.7 G/DL (3.4-5.0); Bilirubin,Total 0.8 MG/DL (0.2-1.0); Calcium 9.2 MG/DL (8.5-10.1); Osmolality,Calculated 288.5 MOS/KG (273-304); Total Protein 6.7 G/DL (6.4-8.3)
[2020-04-19] MEDS: RIVAROXABAN 20 MG TABLET PO SCH (08:14)
[2020-04-19] MEDS: DEXAMETHASONE 4 MG/1 ML VIAL IV SCH (08:14)
[2020-04-19] MEDS: SOTALOL 80 MG TABLET PO SCH ×2 (08:14→20:56)
[2020-04-19] MEDS: POLYETHYLENE GLYCOL POWDER 17 GM PACK PO SCH (08:15)
[2020-04-19] MEDS: ZINC GLUCONATE 50 MG TABLET PO SCH (08:15)
[2020-04-19] MEDS: ASPIRIN CHEW 81 MG TABLET PO SCH (08:15)
[2020-04-19] MEDS: CHOLECALCIFEROL 1,000 UNIT TABLET PO SCH (08:15)
[2020-04-19] MEDS: ASCORBIC ACID 500 MG TABLET PO SCH ×2 (08:15→20:56)
[2020-04-19] MEDS: FUROSEMIDE 40 MG/4 ML VIAL IV SCH (14:24)
[2020-04-19] MEDS: ERGOCALCIFEROL 50,000 UNIT CAPSULE PO SCH (14:24)
[2020-04-19] MEDS: ATORVASTATIN 40 MG TABLET PO SCH (20:56)
[2020-04-20] MEDS: FAMOTIDINE 20 MG/2 ML VIAL IV SCH ×2 (01:02→14:27)
[2020-04-20] MEDS: METOCLOPRAMIDE 10 MG/2 ML VIAL IV SCH ×4 (01:02→18:02)
[2020-04-20] MEDS: INSULIN REGULAR 100 UNIT/ML SUBCUT SCH ×4 (01:03→18:21)
[2020-04-20 04:42] LABS: ABG Base Excess 7.7 MMOL/L (-2.5-2.5); ABG HCO3 31.5 MMOL/L (20-26); ABG Oxygen Saturation 98.9 % (95-100); ABG PCO2 47.6 MM HG (35-48); ABG PH 7.449 (7.35-7.45); ABG TCO2 28.7 MMOL/L (23-27); Allen Test Positive; Pt O2 Delivery Device Ventilator
[2020-04-20 04:52] LABS: Basophils % 0.2 % (0.0-0.8); Eosinophils # 0.2 10*3/uL (0.0-0.87); Eosinophils % 1.1 % (0.00-10.9); Hematocrit 35.3 VOL% (42.0-52.0); Hemoglobin 11.2 GM/DL (14.0-18.0); Immature Granulocytes % 1.6 %; Immature Granulocytes Absolute 0.25 #; Lymphocytes # 1.1 10*3/uL (1.4-4.0); Lymphocytes % 7.1 % (21.2-54.2); Mean Corpuscular HGB Conc 31.7 GM/DL (32-36); Mean Corpuscular Volume 91.5 FL (87-102); Mean Platelet Volume 12.5 FL (9.6-12.0); Monocytes % 9.4 % (1.7-12.7); Neutrophils % 80.6 % (38.7-73.9); Platelet Count 245 T/CUMM (130-400); Red Blood Count 3.86 MC/CUMM (3.8-5.5); Red Cell Distribution Width 15.3 % (9.3-17.3); White Blood Count 15.6 T/CUMM (4-12)
[2020-04-20 05:34] LABS: Ferritin 3286.8 ng/ml (26-388); Osmolality,Calculated 286.7 MOS/KG (273-304); Potassium 4.1 MMOL/L (3.5-5.1)
[2020-04-20] MEDS: DEXAMETHASONE 4 MG/1 ML VIAL IV SCH (06:30)
[2020-04-20] MEDS: ASPIRIN CHEW 81 MG TABLET PO SCH (08:14)
[2020-04-20] MEDS: RIVAROXABAN 20 MG TABLET PO SCH (08:15)
[2020-04-20] MEDS: ASCORBIC ACID 500 MG TABLET PO SCH ×2 (08:15→21:03)
[2020-04-20] MEDS: ZINC GLUCONATE 50 MG TABLET PO SCH (08:16)
[2020-04-20] MEDS: POLYETHYLENE GLYCOL POWDER 17 GM PACK PO SCH (08:16)
[2020-04-20] MEDS: SOTALOL 80 MG TABLET PO SCH ×2 (08:16→21:03)
[2020-04-20] MEDS: ERGOCALCIFEROL 50,000 UNIT CAPSULE PO SCH (09:47)
[2020-04-20] MEDS: FUROSEMIDE 40 MG/4 ML VIAL IV SCH (10:20)
[2020-04-20] MEDS ORDERED: INFLUENZA VIRUS VACCINE 0.5 ML SYRINGE IM ONE (12:00)
[2020-04-20] MEDS ORDERED: PNEUMOCOCCAL VACCINE (13 VALENT) 0.5 ML SYRINGE IM ONE (12:00)
[2020-04-20] MEDS: ATORVASTATIN 40 MG TABLET PO SCH (21:03)
[2020-04-21] MEDS: INSULIN REGULAR 100 UNIT/ML SUBCUT SCH ×4 (01:32→17:20)
[2020-04-21] MEDS: METOCLOPRAMIDE 10 MG/2 ML VIAL IV SCH ×4 (01:34→17:20)
[2020-04-21] MEDS: FAMOTIDINE 20 MG/2 ML VIAL IV SCH ×2 (01:35→13:45)
[2020-04-21 03:21] LABS: ABG Base Excess 8.7 MMOL/L (-2.5-2.5); ABG HCO3 32.3 MMOL/L (20-26); ABG Oxygen Saturation 93.1 % (95-100); ABG PCO2 44.2 MM HG (35-48); ABG PH 7.485 (7.35-7.45); ABG PO2 65.9 MM HG (80-95); Allen Test Positive; Pt O2 Delivery Device Ventilator
[2020-04-21 03:52] LABS: Basophils % 0.2 % (0.0-0.8); Eosinophils # 0.2 10*3/uL (0.0-0.87); Eosinophils % 1.1 % (0.00-10.9); Hemoglobin 10.8 GM/DL (14.0-18.0); Immature Granulocytes % 1.5 %; Lymphocytes % 7.6 % (21.2-54.2); Mean Corpuscular HGB Conc 30.9 GM/DL (32-36); Mean Corpuscular Volume 92.1 FL (87-102); Mean Platelet Volume 12.2 FL (9.6-12.0); Monocytes % 8.8 % (1.7-12.7); Neutrophils % 80.8 % (38.7-73.9); Platelet Count 224 T/CUMM (130-400); Red Cell Distribution Width 15.3 % (9.3-17.3); White Blood Count 13.1 T/CUMM (4-12)
[2020-04-21 04:17] LABS: Albumin 1.9 G/DL (3.4-5.0); Bilirubin,Total 1.1 MG/DL (0.2-1.0); Calcium 9.3 MG/DL (8.5-10.1); Osmolality,Calculated 287.5 MOS/KG (273-304); Potassium 3.9 MMOL/L (3.5-5.1)
[2020-04-21] MEDS: SOTALOL 80 MG TABLET PO SCH ×2 (08:15→20:09)
[2020-04-21] MEDS: FUROSEMIDE 40 MG/4 ML VIAL IV SCH (08:15)
[2020-04-21] MEDS: DEXAMETHASONE 4 MG/1 ML VIAL IV SCH (08:15)
[2020-04-21] MEDS: ZINC GLUCONATE 50 MG TABLET PO SCH (08:15)
[2020-04-21] MEDS: RIVAROXABAN 20 MG TABLET PO SCH (08:16)
[2020-04-21] MEDS: ASCORBIC ACID 500 MG TABLET PO SCH ×2 (08:16→20:09)
[2020-04-21] MEDS: POLYETHYLENE GLYCOL POWDER 17 GM PACK PO SCH (08:16)
[2020-04-21] MEDS: ASPIRIN CHEW 81 MG TABLET PO SCH (08:16)
[2020-04-21] MEDS: cefTRIAXone 1,000 MG in SYRINGE 1 EACH IV SCH (09:50)
[2020-04-21] MEDS ORDERED: FUROSEMIDE 40 MG/4 ML VIAL IV ONE (15:45)
[2020-04-21] MEDS: ATORVASTATIN 40 MG TABLET PO SCH (20:09)
[2020-04-22] MEDS: METOCLOPRAMIDE 10 MG/2 ML VIAL IV SCH ×4 (00:44→17:01)
[2020-04-22] MEDS: FAMOTIDINE 20 MG/2 ML VIAL IV SCH ×2 (00:44→13:31)
[2020-04-22] MEDS: INSULIN REGULAR 100 UNIT/ML SUBCUT SCH ×4 (00:44→17:02)
[2020-04-22 03:47] LABS: ABG Base Excess 9.4 MMOL/L (-2.5-2.5); ABG HCO3 33.1 MMOL/L (20-26); ABG Oxygen Saturation 95.8 % (95-100); ABG PCO2 41.5 MM HG (35-48); ABG PO2 78.4 MM HG (80-95); ABG TCO2 34.4 MMOL/L (23-27)
[2020-04-22 04:44] LABS: Basophils % 0.2 % (0.0-0.8); Eosinophils # 0.1 10*3/uL (0.0-0.87); Eosinophils % 0.6 % (0.00-10.9); Hematocrit 35.9 VOL% (42.0-52.0); Hemoglobin 11.4 GM/DL (14.0-18.0); Immature Granulocytes % 1.3 %; Immature Granulocytes Absolute 0.19 #; Lymphocytes # 1.3 10*3/uL (1.4-4.0); Lymphocytes % 8.6 % (21.2-54.2); Mean Corpuscular HGB Conc 31.8 GM/DL (32-36); Mean Platelet Volume 12.6 FL (9.6-12.0); Monocytes % 8.3 % (1.7-12.7); Platelet Count 247 T/CUMM (130-400); Red Blood Count 3.99 MC/CUMM (3.8-5.5); Red Cell Distribution Width 15.3 % (9.3-17.3); White Blood Count 14.6 T/CUMM (4-12)
[2020-04-22 06:23] LABS: Calcium 9.1 MG/DL (8.5-10.1); Osmolality,Calculated 288.5 MOS/KG (273-304); Potassium 3.7 MMOL/L (3.5-5.1)
[2020-04-22] MEDS: cefTRIAXone 1,000 MG in SYRINGE 1 EACH IV SCH (08:30)
[2020-04-22] MEDS: DEXAMETHASONE 4 MG/1 ML VIAL IV SCH (08:30)
[2020-04-22] MEDS: FUROSEMIDE 40 MG/4 ML VIAL IV SCH ×2 (08:30→15:20)
[2020-04-22] MEDS: RIVAROXABAN 20 MG TABLET PO SCH (08:31)
[2020-04-22] MEDS: ASCORBIC ACID 500 MG TABLET PO SCH ×2 (08:31→20:52)
[2020-04-22] MEDS: POLYETHYLENE GLYCOL POWDER 17 GM PACK PO SCH (08:31)
[2020-04-22] MEDS: ZINC GLUCONATE 50 MG TABLET PO SCH (08:31)
[2020-04-22] MEDS: ASPIRIN CHEW 81 MG TABLET PO SCH (08:31)
[2020-04-22] MEDS: SOTALOL 80 MG TABLET PO SCH ×2 (08:31→20:53)
[2020-04-22] MEDS: ATORVASTATIN 40 MG TABLET PO SCH (20:53)
[2020-04-23] MEDS: METOCLOPRAMIDE 10 MG/2 ML VIAL IV SCH ×4 (00:31→18:36)
[2020-04-23] MEDS: INSULIN REGULAR 100 UNIT/ML SUBCUT SCH ×4 (00:31→17:48)
[2020-04-23] MEDS: FAMOTIDINE 20 MG/2 ML VIAL IV SCH ×2 (00:32→13:49)
[2020-04-23 04:31] LABS: Allen Test Positive; Pt O2 Delivery Device Ventilator
[2020-04-23 04:32] LABS: ABG Base Excess 8.5 MMOL/L (-2.5-2.5); ABG HCO3 32.3 MMOL/L (20-26); ABG Oxygen Saturation 98.4 % (95-100); ABG PCO2 45.2 MM HG (35-48); ABG PH 7.475 (7.35-7.45); ABG TCO2 29.4 MMOL/L (23-27)
[2020-04-23 04:49] LABS: Basophils % 0.2 % (0.0-0.8); Eosinophils # 0.1 10*3/uL (0.0-0.87); Eosinophils % 0.6 % (0.00-10.9); Hematocrit 38.7 VOL% (42.0-52.0); Hemoglobin 11.8 GM/DL (14.0-18.0); Immature Granulocytes % 1.6 %; Immature Granulocytes Absolute 0.27 #; Lymphocytes # 1.3 10*3/uL (1.4-4.0); Lymphocytes % 7.5 % (21.2-54.2); Mean Corpuscular HGB Conc 30.5 GM/DL (32-36); Mean Corpuscular Volume 92.4 FL (87-102); Monocytes % 8.8 % (1.7-12.7); Neutrophils % 81.3 % (38.7-73.9); Platelet Count 296 T/CUMM (130-400); Red Blood Count 4.19 MC/CUMM (3.8-5.5); Red Cell Distribution Width 15.6 % (9.3-17.3); White Blood Count 17.1 T/CUMM (4-12)
[2020-04-23 05:09] LABS: Calcium 9.1 MG/DL (8.5-10.1); Osmolality,Calculated 293.4 MOS/KG (273-304); Potassium 4.1 MMOL/L (3.5-5.1)
[2020-04-23] MEDS: FUROSEMIDE 40 MG/4 ML VIAL IV SCH ×2 (08:09→15:17)
[2020-04-23] MEDS: POLYETHYLENE GLYCOL POWDER 17 GM PACK PO SCH (08:10)
[2020-04-23] MEDS: DEXAMETHASONE 4 MG/1 ML VIAL IV SCH (08:10)
[2020-04-23] MEDS: ZINC GLUCONATE 50 MG TABLET PO SCH (08:10)
[2020-04-23] MEDS: ASCORBIC ACID 500 MG TABLET PO SCH ×2 (08:10→20:27)
[2020-04-23] MEDS: ASPIRIN CHEW 81 MG TABLET PO SCH (08:11)
[2020-04-23] MEDS: SOTALOL 80 MG TABLET PO SCH ×2 (08:11→20:27)
[2020-04-23] MEDS: RIVAROXABAN 20 MG TABLET PO SCH (08:11)
[2020-04-23] MEDS: cefTRIAXone 1,000 MG in SYRINGE 1 EACH IV SCH (09:25)
[2020-04-23] MEDS: ATORVASTATIN 40 MG TABLET PO SCH (20:27)
[2020-04-24] MEDS: INSULIN REGULAR 100 UNIT/ML SUBCUT SCH ×5 (01:05→23:47)
[2020-04-24] MEDS: METOCLOPRAMIDE 10 MG/2 ML VIAL IV SCH ×4 (01:16→18:30)
[2020-04-24] MEDS: FAMOTIDINE 20 MG/2 ML VIAL IV SCH ×2 (01:18→12:29)
[2020-04-24 04:26] LABS: ABG Base Excess 10.5 MMOL/L (-2.5-2.5); ABG HCO3 33.7 MMOL/L (20-26); ABG Oxygen Saturation 91.1 % (95-100); ABG PCO2 39.7 MM HG (35-48); ABG PH 7.547 (7.35-7.45); ABG PO2 58.7 MM HG (80-95); ABG TCO2 34.9 MMOL/L (23-27); Allen Test Positive; Pt O2 Delivery Device Ventilator
[2020-04-24 04:53] LABS: Basophils % 0.2 % (0.0-0.8); Eosinophils # 0.1 10*3/uL (0.0-0.87); Eosinophils % 0.6 % (0.00-10.9); Hematocrit 38.7 VOL% (42.0-52.0); Hemoglobin 11.8 GM/DL (14.0-18.0); Immature Granulocytes % 1.5 %; Immature Granulocytes Absolute 0.24 #; Lymphocytes # 1.9 10*3/uL (1.4-4.0); Lymphocytes % 12.3 % (21.2-54.2); Mean Corpuscular HGB Conc 30.5 GM/DL (32-36); Monocytes % 10.2 % (1.7-12.7); Neutrophils % 75.2 % (38.7-73.9); Platelet Count 305 T/CUMM (130-400); Red Blood Count 4.16 MC/CUMM (3.8-5.5); Red Cell Distribution Width 15.6 % (9.3-17.3); White Blood Count 15.8 T/CUMM (4-12)
[2020-04-24 05:41] LABS: Calcium 9.4 MG/DL (8.5-10.1); Osmolality,Calculated 294.3 MOS/KG (273-304); Potassium 3.3 MMOL/L (3.5-5.1)
[2020-04-24] MEDS: POTASSIUM CHLORIDE RIDER 10 MEQ in PREMIX 1 EACH IV PRN (06:19)
[2020-04-24] MEDS: ASCORBIC ACID 500 MG TABLET PO SCH ×2 (08:36→20:17)
[2020-04-24] MEDS: POTASSIUM CHLORIDE 20 MEQ/15 ML UDCUP PER TUBE PRN ×3 (08:36→17:01)
[2020-04-24] MEDS: POLYETHYLENE GLYCOL POWDER 17 GM PACK PO SCH (08:36)
[2020-04-24] MEDS: ZINC GLUCONATE 50 MG TABLET PO SCH (08:36)
[2020-04-24] MEDS: FUROSEMIDE 40 MG/4 ML VIAL IV SCH ×3 (08:37→21:02)
[2020-04-24] MEDS: ASPIRIN CHEW 81 MG TABLET PO SCH (08:37)
[2020-04-24] MEDS: RIVAROXABAN 20 MG TABLET PO SCH (08:37)
[2020-04-24] MEDS: SOTALOL 80 MG TABLET PO SCH ×2 (08:37→20:17)
[2020-04-24] MEDS: cefTRIAXone 1,000 MG in SYRINGE 1 EACH IV SCH (08:38)
[2020-04-24] MEDS: DEXAMETHASONE 4 MG/1 ML VIAL IV SCH (08:38)
[2020-04-24] MEDS: ATORVASTATIN 40 MG TABLET PO SCH (20:17)
[2020-04-25] MEDS: FAMOTIDINE 20 MG/2 ML VIAL IV SCH ×2 (00:25→17:00)
[2020-04-25] MEDS: METOCLOPRAMIDE 10 MG/2 ML VIAL IV SCH ×4 (00:25→18:54)
[2020-04-25] MEDS: FUROSEMIDE 40 MG/4 ML VIAL IV SCH ×3 (04:35→20:49)
[2020-04-25 04:37] LABS: Basophils # 0.1 10*3/uL (0.0-0.2); Basophils % 0.3 % (0.0-0.8); Eosinophils # 0.1 10*3/uL (0.0-0.87); Eosinophils % 0.9 % (0.00-10.9); Hematocrit 39.5 VOL% (42.0-52.0); Hemoglobin 12.3 GM/DL (14.0-18.0); Immature Granulocytes % 1.4 %; Immature Granulocytes Absolute 0.22 #; Lymphocytes # 1.4 10*3/uL (1.4-4.0); Lymphocytes % 8.6 % (21.2-54.2); Mean Corpuscular HGB Conc 31.1 GM/DL (32-36); Mean Corpuscular Volume 91.9 FL (87-102); Mean Platelet Volume 11.9 FL (9.6-12.0); Monocytes % 8.7 % (1.7-12.7); Neutrophils % 80.1 % (38.7-73.9); Platelet Count 298 T/CUMM (130-400); Red Cell Distribution Width 15.8 % (9.3-17.3); White Blood Count 16.1 T/CUMM (4-12)
[2020-04-25 04:38] LABS: ABG Base Excess 10.2 MMOL/L (-2.5-2.5); ABG Oxygen Saturation 98.6 % (95-100); ABG PCO2 45.8 MM HG (35-48); ABG PH 7.492 (7.35-7.45); ABG TCO2 30.7 MMOL/L (23-27); Allen Test Positive; Pt O2 Delivery Device Ventilator
[2020-04-25 04:53] LABS: Calcium 9.6 MG/DL (8.5-10.1); Osmolality,Calculated 294.4 MOS/KG (273-304); Potassium 3.7 MMOL/L (3.5-5.1)
[2020-04-25] MEDS: INSULIN REGULAR 100 UNIT/ML SUBCUT SCH ×3 (06:18→18:53)
[2020-04-25] MEDS: POTASSIUM CHLORIDE 20 MEQ/15 ML UDCUP PER TUBE PRN (06:18)
[2020-04-25] MEDS: DEXAMETHASONE 4 MG/1 ML VIAL IV SCH (07:54)
[2020-04-25] MEDS: ZINC GLUCONATE 50 MG TABLET PO SCH (08:01)
[2020-04-25] MEDS: ASPIRIN CHEW 81 MG TABLET PO SCH (08:01)
[2020-04-25] MEDS: SOTALOL 80 MG TABLET PO SCH ×2 (08:01→20:47)
[2020-04-25] MEDS: RIVAROXABAN 20 MG TABLET PO SCH (08:01)
[2020-04-25] MEDS: ASCORBIC ACID 500 MG TABLET PO SCH ×2 (08:01→20:47)
[2020-04-25] MEDS: POLYETHYLENE GLYCOL POWDER 17 GM PACK PO SCH (08:01)
[2020-04-25] MEDS: cefTRIAXone 1,000 MG in SYRINGE 1 EACH IV SCH (10:30)
[2020-04-25] MEDS: ATORVASTATIN 40 MG TABLET PO SCH (20:47)
[2020-04-26] MEDS: METOCLOPRAMIDE 10 MG/2 ML VIAL IV SCH ×4 (00:35→18:11)
[2020-04-26] MEDS: INSULIN REGULAR 100 UNIT/ML SUBCUT SCH ×4 (00:36→18:11)
[2020-04-26] MEDS: hydrALAZINE 20 MG/1 ML VIAL IV PRN ×2 (03:22→20:36)
[2020-04-26 04:38] LABS: Basophils # 0.1 10*3/uL (0.0-0.2); Basophils % 0.2 % (0.0-0.8); Eosinophils # 0.2 10*3/uL (0.0-0.87); Eosinophils % 0.7 % (0.00-10.9); Hematocrit 41.8 VOL% (42.0-52.0); Hemoglobin 13.1 GM/DL (14.0-18.0); Immature Granulocytes % 1.4 %; Immature Granulocytes Absolute 0.28 #; Lymphocytes # 1.4 10*3/uL (1.4-4.0); Lymphocytes % 6.8 % (21.2-54.2); Mean Corpuscular HGB Conc 31.3 GM/DL (32-36); Mean Corpuscular Volume 91.5 FL (87-102); Mean Platelet Volume 11.8 FL (9.6-12.0); Monocytes % 8.1 % (1.7-12.7); Neutrophils % 82.8 % (38.7-73.9); Platelet Count 327 T/CUMM (130-400); Red Blood Count 4.57 MC/CUMM (3.8-5.5); Red Cell Distribution Width 15.8 % (9.3-17.3); White Blood Count 20.4 T/CUMM (4-12)
[2020-04-26 04:53] LABS: Eosinophils 1 % (0-10); Lymphocytes 10 % (20-55); Platelet Estimate Normal; Segmented Neutrophils 83 % (50-85); Total Cells Counted 100
[2020-04-26 05:03] LABS: ABG Base Excess 10.5 MMOL/L (-2.5-2.5); ABG HCO3 34.3 MMOL/L (20-26); ABG PCO2 46.5 MM HG (35-48); ABG TCO2 30.7 MMOL/L (23-27)
[2020-04-26 05:12] LABS: Calcium 9.9 MG/DL (8.5-10.1); Osmolality,Calculated 297.1 MOS/KG (273-304); Potassium 3.5 MMOL/L (3.5-5.1)
[2020-04-26] MEDS: FAMOTIDINE 20 MG/2 ML VIAL IV SCH ×2 (05:58→16:11)
[2020-04-26] MEDS: FUROSEMIDE 40 MG/4 ML VIAL IV SCH ×2 (06:25→09:31)
[2020-04-26] MEDS: POLYETHYLENE GLYCOL POWDER 17 GM PACK PO SCH ×2 (08:08→16:11)
[2020-04-26] MEDS: ASCORBIC ACID 500 MG TABLET PO SCH ×3 (08:09→20:04)
[2020-04-26] MEDS: ZINC GLUCONATE 50 MG TABLET PO SCH ×2 (08:09→16:10)
[2020-04-26] MEDS: SOTALOL 80 MG TABLET PO SCH ×3 (08:09→20:04)
[2020-04-26] MEDS: RIVAROXABAN 20 MG TABLET PO SCH ×2 (08:09→16:10)
[2020-04-26] MEDS: ASPIRIN CHEW 81 MG TABLET PO SCH ×2 (08:09→16:11)
[2020-04-26] MEDS: DEXAMETHASONE 4 MG/1 ML VIAL IV SCH (08:10)
[2020-04-26] MEDS: cefTRIAXone 1,000 MG in SYRINGE 1 EACH IV SCH (09:34)
[2020-04-26] MEDS: ERGOCALCIFEROL 50,000 UNIT CAPSULE PO SCH (16:11)
[2020-04-26] MEDS: POTASSIUM CHLORIDE 20 MEQ/15 ML UDCUP PER TUBE PRN (17:02)
[2020-04-26] MEDS: ATORVASTATIN 40 MG TABLET PO SCH (20:04)
[2020-04-27] MEDS: METOCLOPRAMIDE 10 MG/2 ML VIAL IV SCH ×4 (00:45→17:50)
[2020-04-27] MEDS: INSULIN REGULAR 100 UNIT/ML SUBCUT SCH ×4 (01:19→17:50)
[2020-04-27 05:10] LABS: Calcium 10.2 MG/DL (8.5-10.1); Osmolality,Calculated 301.8 MOS/KG (273-304); Potassium 3.4 MMOL/L (3.5-5.1)
[2020-04-27 05:27] LABS: Basophils % 0.3 % (0.0-0.8); Eosinophils # 0.2 10*3/uL (0.0-0.87); Hematocrit 45.1 VOL% (42.0-52.0); Hemoglobin 13.9 GM/DL (14.0-18.0); Immature Granulocytes % 0.8 %; Immature Granulocytes Absolute 0.12 #; Lymphocytes # 1.3 10*3/uL (1.4-4.0); Lymphocytes % 8.3 % (21.2-54.2); Mean Corpuscular HGB Conc 30.8 GM/DL (32-36); Mean Corpuscular Volume 93.2 FL (87-102); Mean Platelet Volume 11.8 FL (9.6-12.0); Monocytes % 9.3 % (1.7-12.7); Neutrophils % 80.3 % (38.7-73.9); Platelet Count 344 T/CUMM (130-400); Red Blood Count 4.84 MC/CUMM (3.8-5.5); Red Cell Distribution Width 16.1 % (9.3-17.3); White Blood Count 15.3 T/CUMM (4-12)
[2020-04-27] MEDS: FAMOTIDINE 20 MG/2 ML VIAL IV SCH ×2 (05:35→17:49)
[2020-04-27] MEDS: DEXAMETHASONE 4 MG/1 ML VIAL IV SCH (07:56)
[2020-04-27] MEDS: SOTALOL 80 MG TABLET PO SCH ×2 (08:01→22:07)
[2020-04-27] MEDS: ZINC GLUCONATE 50 MG TABLET PO SCH (08:01)
[2020-04-27] MEDS: ASCORBIC ACID 500 MG TABLET PO SCH ×2 (08:01→22:07)
[2020-04-27] MEDS: FUROSEMIDE 40 MG/4 ML VIAL IV SCH (08:02)
[2020-04-27] MEDS: RIVAROXABAN 20 MG TABLET PO SCH (08:02)
[2020-04-27] MEDS: POLYETHYLENE GLYCOL POWDER 17 GM PACK PO SCH (08:02)
[2020-04-27] MEDS: ASPIRIN CHEW 81 MG TABLET PO SCH (08:05)
[2020-04-27] MEDS: cefTRIAXone 1,000 MG in SYRINGE 1 EACH IV SCH (08:42)
[2020-04-27] MEDS: POTASSIUM CHLORIDE 20 MEQ/15 ML UDCUP PER TUBE PRN (12:13)
[2020-04-27] MEDS: ATORVASTATIN 40 MG TABLET PO SCH (22:07)
[2020-04-28] MEDS: INSULIN REGULAR 100 UNIT/ML SUBCUT SCH ×4 (00:53→18:00)
[2020-04-28] MEDS: METOCLOPRAMIDE 10 MG/2 ML VIAL IV SCH ×4 (01:37→18:01)
[2020-04-28 04:29] LABS: Calcium 10.3 MG/DL (8.5-10.1); Osmolality,Calculated 303.7 MOS/KG (273-304)
[2020-04-28 04:33] LABS: Basophils % 0.3 % (0.0-0.8); Eosinophils # 0.1 10*3/uL (0.0-0.87); Eosinophils % 0.8 % (0.00-10.9); Hematocrit 49.3 VOL% (42.0-52.0); Immature Granulocytes % 0.8 %; Lymphocytes # 1.2 10*3/uL (1.4-4.0); Lymphocytes % 9.2 % (21.2-54.2); Mean Corpuscular HGB Conc 30.8 GM/DL (32-36); Mean Corpuscular Volume 93.9 FL (87-102); Mean Platelet Volume 12.5 FL (9.6-12.0); Monocytes % 9.5 % (1.7-12.7); Neutrophils % 79.4 % (38.7-73.9); Platelet Count 253 T/CUMM (130-400); Red Blood Count 5.25 MC/CUMM (3.8-5.5); Red Cell Distribution Width 16.5 % (9.3-17.3)
[2020-04-28 04:36] LABS: Hemoglobin 15.2 GM/DL (14.0-18.0)
[2020-04-28] MEDS: FAMOTIDINE 20 MG/2 ML VIAL IV SCH ×2 (06:19→21:38)
[2020-04-28] MEDS: POLYETHYLENE GLYCOL POWDER 17 GM PACK PO SCH (08:56)
[2020-04-28] MEDS: FUROSEMIDE 40 MG/4 ML VIAL IV SCH (08:56)
[2020-04-28] MEDS: DEXAMETHASONE 4 MG/1 ML VIAL IV SCH (08:57)
[2020-04-28] MEDS: MORPHINE 4 MG/1 ML VIAL IV PRN (08:59)
[2020-04-28] MEDS: ASCORBIC ACID 500 MG TABLET PO SCH ×2 (09:01→21:37)
[2020-04-28] MEDS: ZINC GLUCONATE 50 MG TABLET PO SCH (09:01)
[2020-04-28] MEDS: RIVAROXABAN 20 MG TABLET PO SCH (09:01)
[2020-04-28] MEDS: SOTALOL 80 MG TABLET PO SCH ×2 (09:01→21:37)
[2020-04-28] MEDS: ASPIRIN CHEW 81 MG TABLET PO SCH (09:02)
[2020-04-28] MEDS: hydrALAZINE 20 MG/1 ML VIAL IV PRN (13:24)
[2020-04-28] MEDS: WARFARIN 5 MG TABLET PO SCH (13:33)
[2020-04-28] MEDS: ATORVASTATIN 40 MG TABLET PO SCH (21:37)
[2020-04-29] MEDS: INSULIN REGULAR 100 UNIT/ML SUBCUT SCH ×4 (00:58→18:30)
[2020-04-29] MEDS: METOCLOPRAMIDE 10 MG/2 ML VIAL IV SCH ×4 (01:37→18:30)
[2020-04-29] MEDS: MORPHINE 4 MG/1 ML VIAL IV PRN (01:38)
[2020-04-29 05:54] LABS: Basophils # 0.1 10*3/uL (0.0-0.2); Basophils % 0.3 % (0.0-0.8); Eosinophils # 0.3 10*3/uL (0.0-0.87); Eosinophils % 2.2 % (0.00-10.9); Hematocrit 42.6 VOL% (42.0-52.0); Hemoglobin 13.5 GM/DL (14.0-18.0); Immature Granulocytes % 0.6 %; Immature Granulocytes Absolute 0.09 #; Lymphocytes # 1.8 10*3/uL (1.4-4.0); Lymphocytes % 11.8 % (21.2-54.2); Mean Corpuscular HGB Conc 31.7 GM/DL (32-36); Mean Corpuscular Volume 91.2 FL (87-102); Mean Platelet Volume 11.5 FL (9.6-12.0); Monocytes % 9.7 % (1.7-12.7); Neutrophils % 75.4 % (38.7-73.9); Platelet Count 317 T/CUMM (130-400); Red Blood Count 4.67 MC/CUMM (3.8-5.5); Red Cell Distribution Width 15.9 % (9.3-17.3); White Blood Count 15.4 T/CUMM (4-12)
[2020-04-29] MEDS: ENOXAPARIN 120 MG/0.8 ML SYRINGE SUBCUT SCH ×2 (10:09→22:07)
[2020-04-29] MEDS: ASPIRIN CHEW 81 MG TABLET PO SCH (10:09)
[2020-04-29] MEDS: ASCORBIC ACID 500 MG TABLET PO SCH ×2 (10:09→22:07)
[2020-04-29] MEDS: FUROSEMIDE 40 MG/4 ML VIAL IV SCH (10:09)
[2020-04-29] MEDS: SOTALOL 80 MG TABLET PO SCH ×2 (10:10→22:07)
[2020-04-29] MEDS: POLYETHYLENE GLYCOL POWDER 17 GM PACK PO SCH (10:10)
[2020-04-29] MEDS: ZINC GLUCONATE 50 MG TABLET PO SCH (10:10)
[2020-04-29] MEDS: WARFARIN 5 MG TABLET PO SCH (10:10)
[2020-04-29] MEDS: FAMOTIDINE 20 MG/2 ML VIAL IV SCH ×2 (10:11→22:07)
[2020-04-29] MEDS: DEXAMETHASONE 4 MG/1 ML VIAL IV SCH (10:11)
[2020-04-29] MEDS: ATORVASTATIN 40 MG TABLET PO SCH (22:07)
[2020-04-30] MEDS: INSULIN REGULAR 100 UNIT/ML SUBCUT SCH ×4 (00:07→17:21)
[2020-04-30] MEDS: METOCLOPRAMIDE 10 MG/2 ML VIAL IV SCH ×2 (00:08→05:35)
[2020-04-30 05:38] LABS: Basophils % 0.2 % (0.0-0.8); Eosinophils # 0.2 10*3/uL (0.0-0.87); Hemoglobin 13.3 GM/DL (14.0-18.0); Immature Granulocytes % 0.6 %; Immature Granulocytes Absolute 0.09 #; Lymphocytes # 1.6 10*3/uL (1.4-4.0); Lymphocytes % 10.8 % (21.2-54.2); Mean Corpuscular HGB Conc 31.7 GM/DL (32-36); Mean Corpuscular Volume 89.9 FL (87-102); Mean Platelet Volume 11.5 FL (9.6-12.0); Neutrophils % 79.4 % (38.7-73.9); Platelet Count 289 T/CUMM (130-400); Red Blood Count 4.67 MC/CUMM (3.8-5.5); Red Cell Distribution Width 15.7 % (9.3-17.3); White Blood Count 14.7 T/CUMM (4-12)
[2020-04-30 05:46] LABS: INR 1.2; PT Patient Result 12.8 SECS (9.8-11.9)
[2020-04-30] MEDS: ASCORBIC ACID 500 MG TABLET PO SCH ×2 (08:54→21:42)
[2020-04-30] MEDS: ZINC GLUCONATE 50 MG TABLET PO SCH (08:54)
[2020-04-30] MEDS: SOTALOL 80 MG TABLET PO SCH ×2 (08:55→21:42)
[2020-04-30] MEDS: ASPIRIN CHEW 81 MG TABLET PO SCH (08:55)
[2020-04-30] MEDS: ENOXAPARIN 120 MG/0.8 ML SYRINGE SUBCUT SCH ×2 (08:55→21:42)
[2020-04-30] MEDS: FAMOTIDINE 20 MG/2 ML VIAL IV SCH (08:56)
[2020-04-30] MEDS: DEXAMETHASONE 4 MG/1 ML VIAL IV SCH (08:56)
[2020-04-30] MEDS: FUROSEMIDE 40 MG/4 ML VIAL IV SCH (08:57)
[2020-04-30] MEDS: WARFARIN 5 MG TABLET PO SCH (08:59)
[2020-04-30] MEDS: POLYETHYLENE GLYCOL POWDER 17 GM PACK PO SCH (09:04)
[2020-04-30] MEDS: METOCLOPRAMIDE 5 MG TABLET PO SCH ×3 (12:42→21:42)
[2020-04-30] MEDS: FAMOTIDINE 20 MG TABLET PO SCH (21:42)
[2020-04-30] MEDS: ATORVASTATIN 40 MG TABLET PO SCH (21:42)
[2020-05-01] MEDS: INSULIN REGULAR 100 UNIT/ML SUBCUT SCH ×4 (01:34→18:10)
[2020-05-01 05:18] LABS: Basophils % 0.1 % (0.0-0.8); Eosinophils # 0.1 10*3/uL (0.0-0.87); Eosinophils % 0.7 % (0.00-10.9); Hematocrit 44.7 VOL% (42.0-52.0); Hemoglobin 14.1 GM/DL (14.0-18.0); Immature Granulocytes % 0.6 %; Lymphocytes # 1.4 10*3/uL (1.4-4.0); Lymphocytes % 9.3 % (21.2-54.2); Mean Corpuscular HGB Conc 31.5 GM/DL (32-36); Mean Corpuscular Volume 90.1 FL (87-102); Mean Platelet Volume 12.8 FL (9.6-12.0); Monocytes % 7.8 % (1.7-12.7); Neutrophils % 81.5 % (38.7-73.9); Platelet Count 210 T/CUMM (130-400); Red Blood Count 4.96 MC/CUMM (3.8-5.5); Red Cell Distribution Width 15.5 % (9.3-17.3); White Blood Count 15.5 T/CUMM (4-12)
[2020-05-01] MEDS: POLYETHYLENE GLYCOL POWDER 17 GM PACK PO SCH (08:46)
[2020-05-01] MEDS: ENOXAPARIN 120 MG/0.8 ML SYRINGE SUBCUT SCH ×2 (08:48→20:26)
[2020-05-01] MEDS: ASCORBIC ACID 500 MG TABLET PO SCH ×2 (08:48→20:27)
[2020-05-01] MEDS: METOCLOPRAMIDE 5 MG TABLET PO SCH ×4 (08:48→20:27)
[2020-05-01] MEDS: FUROSEMIDE 40 MG/4 ML VIAL IV SCH (08:48)
[2020-05-01] MEDS: DEXAMETHASONE 4 MG TABLET PO SCH (08:49)
[2020-05-01] MEDS: FAMOTIDINE 20 MG TABLET PO SCH ×2 (08:49→20:27)
[2020-05-01] MEDS: ASPIRIN CHEW 81 MG TABLET PO SCH (08:49)
[2020-05-01] MEDS: WARFARIN 5 MG TABLET PO SCH (08:49)
[2020-05-01] MEDS: ZINC GLUCONATE 50 MG TABLET PO SCH (08:49)
[2020-05-01] MEDS: SOTALOL 80 MG TABLET PO SCH ×2 (08:49→20:27)
[2020-05-01] MEDS: ATORVASTATIN 40 MG TABLET PO SCH (20:27)
[2020-05-02] MEDS: INSULIN REGULAR 100 UNIT/ML SUBCUT SCH (05:40)
[2020-05-02 07:53] LABS: Basophils % 0.1 % (0.0-0.8); Eosinophils # 0.3 10*3/uL (0.0-0.87); Eosinophils % 1.6 % (0.00-10.9); Hematocrit 43.5 VOL% (42.0-52.0); Hemoglobin 13.5 GM/DL (14.0-18.0); Immature Granulocytes % 0.9 %; Immature Granulocytes Absolute 0.15 #; Lymphocytes # 1.8 10*3/uL (1.4-4.0); Lymphocytes % 11.2 % (21.2-54.2); Mean Corpuscular Volume 90.6 FL (87-102); Mean Platelet Volume 12.2 FL (9.6-12.0); Monocytes % 9.9 % (1.7-12.7); Neutrophils % 76.3 % (38.7-73.9); Platelet Count 275 T/CUMM (130-400); Red Cell Distribution Width 15.7 % (9.3-17.3)
[2020-05-02 08:01] LABS: INR 2.1
[2020-05-02 08:02] LABS: PT Patient Result 22.1 SECS (9.8-11.9)
[2020-05-02] MEDS: FUROSEMIDE 40 MG/4 ML VIAL IV SCH (08:55)
[2020-05-02] MEDS: ENOXAPARIN 120 MG/0.8 ML SYRINGE SUBCUT SCH ×2 (08:55→20:41)
[2020-05-02] MEDS: METOCLOPRAMIDE 5 MG TABLET PO SCH ×4 (08:55→20:40)
[2020-05-02] MEDS: ASCORBIC ACID 500 MG TABLET PO SCH ×2 (08:56→20:40)
[2020-05-02] MEDS: ZINC GLUCONATE 50 MG TABLET PO SCH (08:56)
[2020-05-02] MEDS: SOTALOL 80 MG TABLET PO SCH ×2 (08:56→20:40)
[2020-05-02] MEDS: FAMOTIDINE 20 MG TABLET PO SCH ×2 (08:56→20:40)
[2020-05-02] MEDS: ASPIRIN CHEW 81 MG TABLET PO SCH (08:56)
[2020-05-02] MEDS: WARFARIN 5 MG TABLET PO SCH (08:56)
[2020-05-02] MEDS: DEXAMETHASONE 4 MG TABLET PO SCH (08:57)
[2020-05-02] MEDS: POLYETHYLENE GLYCOL POWDER 17 GM PACK PO SCH (10:25)
[2020-05-02] MEDS: ATORVASTATIN 40 MG TABLET PO SCH (20:40)
[2020-05-03] MEDS: FUROSEMIDE 40 MG/4 ML VIAL IV SCH (08:07)
[2020-05-03] MEDS: METOCLOPRAMIDE 5 MG TABLET PO SCH ×4 (08:08→21:00)
[2020-05-03] MEDS: DEXAMETHASONE 4 MG TABLET PO SCH (08:08)
[2020-05-03] MEDS: SOTALOL 80 MG TABLET PO SCH ×2 (08:08→21:00)
[2020-05-03] MEDS: FAMOTIDINE 20 MG TABLET PO SCH ×2 (08:08→21:00)
[2020-05-03] MEDS: ASPIRIN CHEW 81 MG TABLET PO SCH (08:08)
[2020-05-03] MEDS: ZINC GLUCONATE 50 MG TABLET PO SCH (08:08)
[2020-05-03] MEDS: ASCORBIC ACID 500 MG TABLET PO SCH ×2 (08:08→21:00)
[2020-05-03] MEDS: WARFARIN 5 MG TABLET PO SCH (08:08)
[2020-05-03] MEDS: POLYETHYLENE GLYCOL POWDER 17 GM PACK PO SCH (08:11)
[2020-05-03 09:47] LABS: Basophils % 0.2 % (0.0-0.8); Eosinophils # 0.3 10*3/uL (0.0-0.87); Eosinophils % 1.5 % (0.00-10.9); Hematocrit 45.3 VOL% (42.0-52.0); Immature Granulocytes % 0.9 %; Immature Granulocytes Absolute 0.17 #; Lymphocytes % 11.1 % (21.2-54.2); Mean Corpuscular HGB Conc 30.9 GM/DL (32-36); Mean Corpuscular Volume 92.3 FL (87-102); Mean Platelet Volume 12.5 FL (9.6-12.0); Monocytes % 10.3 % (1.7-12.7); Platelet Count 313 T/CUMM (130-400); Red Blood Count 4.91 MC/CUMM (3.8-5.5); Red Cell Distribution Width 15.7 % (9.3-17.3); White Blood Count 18.3 T/CUMM (4-12)
[2020-05-03 10:01] LABS: PT Patient Result 30.3 SECS (9.8-11.9)
[2020-05-03] MEDS: ENOXAPARIN 120 MG/0.8 ML SYRINGE SUBCUT SCH (10:06)
[2020-05-03 10:14] LABS: Albumin 2.7 G/DL (3.4-5.0); Calcium 10.6 MG/DL (8.5-10.1); Potassium 3.6 MMOL/L (3.5-5.1); Total Protein 7.9 G/DL (6.4-8.3)
[2020-05-03] MEDS: ACETAMINOPHEN 325 MG TABLET PO PRN (12:26)
[2020-05-03] MEDS ORDERED: ZOLEDRONIC ACID 4 MG in PREMIX 1 EACH IV ONE (15:00)
[2020-05-03] MEDS: ERGOCALCIFEROL 50,000 UNIT CAPSULE PO SCH (16:19)
[2020-05-03] MEDS: ATORVASTATIN 40 MG TABLET PO SCH (21:00)
[2020-05-04] MEDS: ACETAMINOPHEN 325 MG TABLET PO PRN (00:59)
[2020-05-04 05:50] LABS: Basophils # 0.1 10*3/uL (0.0-0.2); Basophils % 0.3 % (0.0-0.8); Eosinophils % 0.2 % (0.00-10.9); Hematocrit 39.4 VOL% (42.0-52.0); Immature Granulocytes % 1.2 %; Immature Granulocytes Absolute 0.27 #; Lymphocytes # 1.6 10*3/uL (1.4-4.0); Lymphocytes % 6.8 % (21.2-54.2); Mean Corpuscular Volume 88.3 FL (87-102); Monocytes % 10.1 % (1.7-12.7); Neutrophils % 81.4 % (38.7-73.9); Platelet Count 300 T/CUMM (130-400); Red Blood Count 4.46 MC/CUMM (3.8-5.5); Red Cell Distribution Width 15.9 % (9.3-17.3); White Blood Count 23.4 T/CUMM (4-12)
[2020-05-04 06:10] LABS: Albumin 2.6 G/DL (3.4-5.0); Bilirubin,Total 1.2 MG/DL (0.2-1.0); Calcium 10.3 MG/DL (8.5-10.1); Osmolality,Calculated 283.2 MOS/KG (273-304); Potassium 4.1 MMOL/L (3.5-5.1); Total Protein 7.6 G/DL (6.4-8.3)
[2020-05-04 06:17] LABS: Eosinophils 3 % (0-10); Hypochromasia 1+; Lymphocytes 7 % (20-55); Microcytosis 1+; Platelet Estimate Adequate; Segmented Neutrophils 81 % (50-85); Total Cells Counted 100
[2020-05-04 06:24] LABS: Parathyroid Hormone Intact 83.1 PG/ML (18.4-80.1)
[2020-05-04] MEDS: METOCLOPRAMIDE 5 MG TABLET PO SCH ×4 (09:38→22:14)
[2020-05-04] MEDS: DEXAMETHASONE 4 MG TABLET PO SCH (09:38)
[2020-05-04] MEDS: SOTALOL 80 MG TABLET PO SCH ×2 (09:38→22:14)
[2020-05-04] MEDS: ZINC GLUCONATE 50 MG TABLET PO SCH (09:40)
[2020-05-04] MEDS: ASCORBIC ACID 500 MG TABLET PO SCH ×2 (09:40→22:14)
[2020-05-04] MEDS: ASPIRIN CHEW 81 MG TABLET PO SCH (09:41)
[2020-05-04] MEDS: POLYETHYLENE GLYCOL POWDER 17 GM PACK PO SCH (09:41)
[2020-05-04] MEDS: FAMOTIDINE 20 MG TABLET PO SCH ×2 (09:41→22:14)
[2020-05-04] MEDS: FUROSEMIDE 40 MG/4 ML VIAL IV SCH (09:42)
[2020-05-04] MEDS ORDERED: WARFARIN 5 MG TABLET PO SCH (18:00)
[2020-05-04] MEDS: ATORVASTATIN 40 MG TABLET PO SCH (22:14)
[2020-05-05] MEDS: FAMOTIDINE 20 MG TABLET PO SCH ×2 (08:19→22:15)
[2020-05-05] MEDS: METOCLOPRAMIDE 5 MG TABLET PO SCH ×4 (08:19→22:15)
[2020-05-05] MEDS: SOTALOL 80 MG TABLET PO SCH ×2 (08:19→22:15)
[2020-05-05] MEDS: ASCORBIC ACID 500 MG TABLET PO SCH ×2 (08:19→22:16)
[2020-05-05] MEDS: ZINC GLUCONATE 50 MG TABLET PO SCH (08:19)
[2020-05-05] MEDS: ASPIRIN CHEW 81 MG TABLET PO SCH (08:19)
[2020-05-05] MEDS: POLYETHYLENE GLYCOL POWDER 17 GM PACK PO SCH (08:20)
[2020-05-05 08:50] LABS: Albumin 2.3 G/DL (3.4-5.0); Bilirubin,Total 0.9 MG/DL (0.2-1.0); Calcium 9.4 MG/DL (8.5-10.1); Osmolality,Calculated 283.9 MOS/KG (273-304); Total Protein 7.2 G/DL (6.4-8.3)
[2020-05-05 09:36] LABS: Basophils # 0.1 10*3/uL (0.0-0.2); Basophils % 0.2 % (0.0-0.8); Hematocrit 32.9 VOL% (42.0-52.0); Hemoglobin 10.6 GM/DL (14.0-18.0); Immature Granulocytes % 2.7 %; Immature Granulocytes Absolute 0.83 #; Lymphocytes # 1.9 10*3/uL (1.4-4.0); Lymphocytes % 6.1 % (21.2-54.2); Mean Corpuscular HGB Conc 32.2 GM/DL (32-36); Mean Corpuscular Volume 90.1 FL (87-102); Mean Platelet Volume 13.2 FL (9.6-12.0); Monocytes % 10.4 % (1.7-12.7); NRBC # 0.03 10*3/uL; Neutrophils % 80.6 % (38.7-73.9); Platelet Count 307 T/CUMM (130-400); Red Blood Count 3.65 MC/CUMM (3.8-5.5); Red Cell Distribution Width 16.3 % (9.3-17.3)
[2020-05-05 09:38] LABS: White Blood Count 30.9 T/CUMM (4-12)
[2020-05-05 09:49] LABS: PT Patient Result 60.8 SECS (9.8-11.9)
[2020-05-05 09:51] LABS: INR 6.2
[2020-05-05 10:11] LABS: Anisocytosis 1+; Band Neutrophils 4 % (0-10); Lymphocytes 7 % (20-55); Metamyelocytes 3 %; Myelocytes 1 %; Platelet Estimate Normal; Segmented Neutrophils 74 % (50-85); Total Cells Counted 100
[2020-05-05 10:12] LABS: Macrocytosis Slight
[2020-05-05] MEDS: SODIUM CHLORIDE 0.9% 1,000 ML IV SCH (11:57)
[2020-05-05] MEDS ORDERED: WARFARIN 2.5 MG TABLET PO SCH (18:00)
[2020-05-05] MEDS: ATORVASTATIN 40 MG TABLET PO SCH (22:16)
[2020-05-06] MEDS: ACETAMINOPHEN 325 MG TABLET PO PRN (04:07)
[2020-05-06 06:30] LABS: Albumin 2.2 G/DL (3.4-5.0); Calcium 8.9 MG/DL (8.5-10.1); Osmolality,Calculated 287.1 MOS/KG (273-304); Potassium 4.9 MMOL/L (3.5-5.1); Total Protein 6.8 G/DL (6.4-8.3)
[2020-05-06 06:31] LABS: Basophils % 0.1 % (0.0-0.8); Eosinophils % 0.1 % (0.00-10.9); Hematocrit 29.3 VOL% (42.0-52.0); Hemoglobin 9.4 GM/DL (14.0-18.0); Immature Granulocytes % 2.9 %; Immature Granulocytes Absolute 0.85 #; Lymphocytes # 1.6 10*3/uL (1.4-4.0); Lymphocytes % 5.5 % (21.2-54.2); Mean Corpuscular HGB Conc 32.1 GM/DL (32-36); Mean Corpuscular Volume 89.9 FL (87-102); Mean Platelet Volume 13.3 FL (9.6-12.0); Monocytes % 10.6 % (1.7-12.7); Neutrophils % 80.8 % (38.7-73.9); Platelet Count 275 T/CUMM (130-400); Red Blood Count 3.26 MC/CUMM (3.8-5.5); Red Cell Distribution Width 16.5 % (9.3-17.3); White Blood Count 29.2 T/CUMM (4-12)
[2020-05-06 06:48] LABS: PT Patient Result 68.1 SECS (9.8-11.9)
[2020-05-06 06:49] LABS: Lymphocytes 6 % (20-55); Nucleated Red Blood Cells 2 (0-5); Platelet Estimate Adequate; Segmented Neutrophils 84 % (50-85); Total Cells Counted 100
[2020-05-06 06:50] LABS: Hypochromasia 1+; Microcytosis 1+
[2020-05-06] MEDS ORDERED: SODIUM CHLORIDE 0.9% 1,000 ML IV SCH (08:00)
[2020-05-06] MEDS: CHOLECALCIFEROL 1,000 UNIT TABLET PO SCH (08:55)
[2020-05-06] MEDS: ZINC GLUCONATE 50 MG TABLET PO SCH (08:55)
[2020-05-06] MEDS: ASCORBIC ACID 500 MG TABLET PO SCH ×2 (08:56→20:36)
[2020-05-06] MEDS: ASPIRIN CHEW 81 MG TABLET PO SCH (08:56)
[2020-05-06] MEDS: METOCLOPRAMIDE 5 MG TABLET PO SCH ×4 (08:56→20:36)
[2020-05-06] MEDS: POLYETHYLENE GLYCOL POWDER 17 GM PACK PO SCH (08:56)
[2020-05-06] MEDS: SOTALOL 80 MG TABLET PO SCH ×2 (08:56→20:36)
[2020-05-06] MEDS: FAMOTIDINE 20 MG TABLET PO SCH ×2 (09:02→20:36)
[2020-05-06] MEDS: SODIUM CHLORIDE 0.9% 1,000 ML IV SCH (20:24)
[2020-05-06] MEDS: ATORVASTATIN 40 MG TABLET PO SCH (20:37)
[2020-05-07 08:14] LABS: Basophils % 0.1 % (0.0-0.8); Eosinophils # 0.2 10*3/uL (0.0-0.87); Eosinophils % 0.8 % (0.00-10.9); Hematocrit 25.2 VOL% (42.0-52.0); Hemoglobin 8.1 GM/DL (14.0-18.0); Immature Granulocytes % 4.1 %; Immature Granulocytes Absolute 0.93 #; Lymphocytes # 1.2 10*3/uL (1.4-4.0); Lymphocytes % 5.5 % (21.2-54.2); Mean Corpuscular HGB Conc 32.1 GM/DL (32-36); Mean Corpuscular Volume 91.3 FL (87-102); Mean Platelet Volume 12.9 FL (9.6-12.0); Monocytes % 11.9 % (1.7-12.7); NRBC # 0.28 10*3/uL; Neutrophils % 77.6 % (38.7-73.9); Platelet Count 250 T/CUMM (130-400); Red Blood Count 2.76 MC/CUMM (3.8-5.5); Red Cell Distribution Width 17.2 % (9.3-17.3); White Blood Count 22.7 T/CUMM (4-12)
[2020-05-07 08:23] LABS: INR 3.2; PT Patient Result 32.5 SECS (9.8-11.9)
[2020-05-07] MEDS: ASPIRIN CHEW 81 MG TABLET PO SCH (08:24)
[2020-05-07] MEDS: CHOLECALCIFEROL 1,000 UNIT TABLET PO SCH (08:24)
[2020-05-07] MEDS: POLYETHYLENE GLYCOL POWDER 17 GM PACK PO SCH (08:24)
[2020-05-07] MEDS: SOTALOL 80 MG TABLET PO SCH ×2 (08:25→20:48)
[2020-05-07] MEDS: ZINC GLUCONATE 50 MG TABLET PO SCH (08:25)
[2020-05-07] MEDS: METOCLOPRAMIDE 5 MG TABLET PO SCH ×4 (08:25→20:48)
[2020-05-07] MEDS: FAMOTIDINE 20 MG TABLET PO SCH ×2 (08:25→20:49)
[2020-05-07 08:33] LABS: Eosinophils 2 % (0-10); Hypochromasia 2+; Lymphocytes 8 % (20-55); Microcytosis 1+; Platelet Estimate Adequate; Segmented Neutrophils 79 % (50-85); Total Cells Counted 100
[2020-05-07] MEDS: SODIUM CHLORIDE 0.9% 1,000 ML IV SCH (08:35)
[2020-05-07 08:39] LABS: Albumin 2.1 G/DL (3.4-5.0); Bilirubin,Total 1.3 MG/DL (0.2-1.0); Calcium 8.1 MG/DL (8.5-10.1); Osmolality,Calculated 298.1 MOS/KG (273-304); Potassium 4.3 MMOL/L (3.5-5.1); Total Protein 6.3 G/DL (6.4-8.3)
[2020-05-07] MEDS: ACETAMINOPHEN 325 MG TABLET PO PRN (11:36)
[2020-05-07] MEDS ORDERED: SODIUM CHLORIDE 0.9% 1,000 ML IV PRN (12:44)
[2020-05-07] MEDS: ASCORBIC ACID 500 MG TABLET PO SCH ×2 (17:16→20:48)
[2020-05-07] MEDS: ATORVASTATIN 40 MG TABLET PO SCH (20:49)
[2020-05-07 20:52] LABS: Hematocrit 30.8 VOL% (42.0-52.0); Hemoglobin 9.8 GM/DL (14.0-18.0)
[2020-05-08] MEDS: SODIUM CHLORIDE 0.9% 1,000 ML IV SCH ×2 (02:37→15:52)
[2020-05-08 07:47] LABS: Basophils # 0.1 10*3/uL (0.0-0.2); Basophils % 0.3 % (0.0-0.8); Eosinophils # 0.4 10*3/uL (0.0-0.87); Eosinophils % 2.2 % (0.00-10.9); Hematocrit 30.6 VOL% (42.0-52.0); Immature Granulocytes % 4.7 %; Immature Granulocytes Absolute 0.87 #; Lymphocytes # 1.2 10*3/uL (1.4-4.0); Lymphocytes % 6.3 % (21.2-54.2); Mean Corpuscular HGB Conc 32.7 GM/DL (32-36); Mean Corpuscular Volume 92.2 FL (87-102); Mean Platelet Volume 12.6 FL (9.6-12.0); Monocytes % 12.1 % (1.7-12.7); NRBC # 0.15 10*3/uL; Neutrophils % 74.4 % (38.7-73.9); Platelet Count 230 T/CUMM (130-400); Red Blood Count 3.32 MC/CUMM (3.8-5.5); White Blood Count 18.6 T/CUMM (4-12)
[2020-05-08 07:57] LABS: INR 1.7; PT Patient Result 17.7 SECS (9.8-11.9)
[2020-05-08 08:08] LABS: Eosinophils 1 % (0-10); Lymphocytes 5 % (20-55); Metamyelocytes 4 %; Segmented Neutrophils 71 % (50-85); Total Cells Counted 100
[2020-05-08 08:09] LABS: Albumin 1.8 G/DL (3.4-5.0); Bilirubin,Total 1.6 MG/DL (0.2-1.0); Calcium 8.3 MG/DL (8.5-10.1); Osmolality,Calculated 295.7 MOS/KG (273-304); Potassium 3.9 MMOL/L (3.5-5.1); Total Protein 6.1 G/DL (6.4-8.3)
[2020-05-08 08:10] LABS: Polychromasia Slight
[2020-05-08 08:11] LABS: Burr Cells Few; Platelet Estimate Adequate
[2020-05-08] MEDS: POLYETHYLENE GLYCOL POWDER 17 GM PACK PO SCH (09:52)
[2020-05-08] MEDS: METOCLOPRAMIDE 5 MG TABLET PO SCH ×4 (09:53→21:48)
[2020-05-08] MEDS: FAMOTIDINE 20 MG TABLET PO SCH ×2 (09:53→21:49)
[2020-05-08] MEDS: CHOLECALCIFEROL 1,000 UNIT TABLET PO SCH (09:53)
[2020-05-08] MEDS: ASCORBIC ACID 500 MG TABLET PO SCH ×2 (09:53→21:49)
[2020-05-08] MEDS: ASPIRIN CHEW 81 MG TABLET PO SCH (09:53)
[2020-05-08] MEDS: SOTALOL 80 MG TABLET PO SCH ×2 (09:53→21:49)
[2020-05-08] MEDS: ZINC GLUCONATE 50 MG TABLET PO SCH (09:53)
[2020-05-08] MEDS: ENOXAPARIN 100 MG/ML SYRINGE SUBCUT SCH ×2 (11:52→21:49)
[2020-05-08] MEDS: ACETAMINOPHEN 325 MG TABLET PO PRN (11:53)
[2020-05-08] MEDS: WARFARIN 2 MG TABLET PO SCH (11:56)
[2020-05-08] MEDS: ATORVASTATIN 40 MG TABLET PO SCH (21:49)
[2020-05-09] MEDS: ACETAMINOPHEN 325 MG TABLET PO PRN (02:02)
[2020-05-09] MEDS: SODIUM CHLORIDE 0.9% 1,000 ML IV SCH ×2 (05:10→21:43)
[2020-05-09 06:29] LABS: Basophils # 0.1 10*3/uL (0.0-0.2); Basophils % 0.5 % (0.0-0.8); Eosinophils # 0.6 10*3/uL (0.0-0.87); Eosinophils % 3.3 % (0.00-10.9); Hematocrit 28.9 VOL% (42.0-52.0); Hemoglobin 9.2 GM/DL (14.0-18.0); Immature Granulocytes % 5.1 %; Immature Granulocytes Absolute 0.86 #; Lymphocytes # 1.2 10*3/uL (1.4-4.0); Lymphocytes % 7.2 % (21.2-54.2); Mean Corpuscular HGB Conc 31.8 GM/DL (32-36); Mean Corpuscular Volume 94.4 FL (87-102); Mean Platelet Volume 12.2 FL (9.6-12.0); NRBC # 0.07 10*3/uL; Neutrophils % 71.9 % (38.7-73.9); Platelet Count 223 T/CUMM (130-400); Red Blood Count 3.06 MC/CUMM (3.8-5.5); Red Cell Distribution Width 18.3 % (9.3-17.3)
[2020-05-09 06:40] LABS: INR 1.7; PT Patient Result 17.4 SECS (9.8-11.9)
[2020-05-09 06:53] LABS: Albumin 1.7 G/DL (3.4-5.0); Bilirubin,Total 1.6 MG/DL (0.2-1.0); Calcium 8.4 MG/DL (8.5-10.1); Osmolality,Calculated 288.7 MOS/KG (273-304); Potassium 3.8 MMOL/L (3.5-5.1); Total Protein 5.8 G/DL (6.4-8.3)
[2020-05-09 06:59] LABS: Band Neutrophils 1 % (0-10); Eosinophils 2 % (0-10); Hypochromasia 1+; Lymphocytes 7 % (20-55); Microcytosis 1+; Platelet Estimate Adequate; Segmented Neutrophils 83 % (50-85); Total Cells Counted 100
[2020-05-09] MEDS: ASPIRIN CHEW 81 MG TABLET PO SCH (09:45)
[2020-05-09] MEDS: ENOXAPARIN 100 MG/ML SYRINGE SUBCUT SCH ×2 (09:45→21:42)
[2020-05-09] MEDS: METOCLOPRAMIDE 5 MG TABLET PO SCH ×4 (09:45→21:42)
[2020-05-09] MEDS: ZINC GLUCONATE 50 MG TABLET PO SCH (09:45)
[2020-05-09] MEDS: WARFARIN 2 MG TABLET PO SCH (09:45)
[2020-05-09] MEDS: POLYETHYLENE GLYCOL POWDER 17 GM PACK PO SCH (09:45)
[2020-05-09] MEDS: CHOLECALCIFEROL 1,000 UNIT TABLET PO SCH (09:46)
[2020-05-09] MEDS: SOTALOL 80 MG TABLET PO SCH ×2 (09:47→21:42)
[2020-05-09] MEDS: FAMOTIDINE 20 MG TABLET PO SCH ×2 (09:47→21:43)
[2020-05-09] MEDS: ASCORBIC ACID 500 MG TABLET PO SCH ×2 (09:51→21:42)
[2020-05-09] MEDS: ATORVASTATIN 40 MG TABLET PO SCH (21:43)
[2020-05-10 05:36] LABS: Basophils % 0.3 % (0.0-0.8); Eosinophils # 0.6 10*3/uL (0.0-0.87); Eosinophils % 3.9 % (0.00-10.9); Hemoglobin 8.7 GM/DL (14.0-18.0); Immature Granulocytes % 5.2 %; Immature Granulocytes Absolute 0.81 #; Lymphocytes # 1.4 10*3/uL (1.4-4.0); Lymphocytes % 8.8 % (21.2-54.2); Mean Corpuscular HGB Conc 31.1 GM/DL (32-36); Mean Corpuscular Volume 96.2 FL (87-102); Mean Platelet Volume 12.3 FL (9.6-12.0); Monocytes % 10.5 % (1.7-12.7); NRBC # 0.02 10*3/uL; Neutrophils % 71.3 % (38.7-73.9); Platelet Count 237 T/CUMM (130-400); Red Blood Count 2.91 MC/CUMM (3.8-5.5); Red Cell Distribution Width 18.5 % (9.3-17.3); White Blood Count 15.5 T/CUMM (4-12)
[2020-05-10 05:47] LABS: INR 1.6; PT Patient Result 17.2 SECS (9.8-11.9)
[2020-05-10 06:03] LABS: Albumin 1.8 G/DL (3.4-5.0); Bilirubin,Total 1.5 MG/DL (0.2-1.0); Osmolality,Calculated 285.4 MOS/KG (273-304); Potassium 3.8 MMOL/L (3.5-5.1); Total Protein 5.5 G/DL (6.4-8.3)
[2020-05-10 06:08] LABS: Eosinophils 3 % (0-10); Hypochromasia Slight; Lymphocytes 7 % (20-55); Nucleated Red Blood Cells 1 (0-5); Platelet Estimate Normal; Segmented Neutrophils 81 % (50-85); Total Cells Counted 100
[2020-05-10] MEDS: ENOXAPARIN 100 MG/ML SYRINGE SUBCUT SCH ×2 (08:50→21:53)
[2020-05-10] MEDS: POLYETHYLENE GLYCOL POWDER 17 GM PACK PO SCH (08:50)
[2020-05-10] MEDS: METOCLOPRAMIDE 5 MG TABLET PO SCH ×4 (08:51→21:53)
[2020-05-10] MEDS: SOTALOL 80 MG TABLET PO SCH ×2 (08:51→21:54)
[2020-05-10] MEDS: ASCORBIC ACID 500 MG TABLET PO SCH ×2 (08:51→21:53)
[2020-05-10] MEDS: CHOLECALCIFEROL 1,000 UNIT TABLET PO SCH (08:51)
[2020-05-10] MEDS: ZINC GLUCONATE 50 MG TABLET PO SCH (08:51)
[2020-05-10] MEDS: ASPIRIN CHEW 81 MG TABLET PO SCH (08:52)
[2020-05-10] MEDS: FAMOTIDINE 20 MG TABLET PO SCH ×2 (08:52→21:53)
[2020-05-10] MEDS: SODIUM CHLORIDE 0.9% 1,000 ML IV SCH (11:23)
[2020-05-10] MEDS: ERGOCALCIFEROL 50,000 UNIT CAPSULE PO SCH (13:11)
[2020-05-10] MEDS: WARFARIN 2.5 MG TABLET PO SCH (17:14)
[2020-05-10] MEDS: ATORVASTATIN 40 MG TABLET PO SCH (21:53)
[2020-05-11] MEDS: SODIUM CHLORIDE 0.9% 1,000 ML IV SCH ×2 (02:42→11:32)
[2020-05-11 06:39] LABS: Basophils % 0.2 % (0.0-0.8); Eosinophils # 0.5 10*3/uL (0.0-0.87); Eosinophils % 3.5 % (0.00-10.9); Hematocrit 25.7 VOL% (42.0-52.0); Hemoglobin 7.6 GM/DL (14.0-18.0); Immature Granulocytes % 4.6 %; Immature Granulocytes Absolute 0.65 #; Lymphocytes # 1.1 10*3/uL (1.4-4.0); Lymphocytes % 7.9 % (21.2-54.2); Mean Corpuscular HGB Conc 29.6 GM/DL (32-36); Mean Platelet Volume 11.6 FL (9.6-12.0); Monocytes % 9.8 % (1.7-12.7); NRBC # 0.03 10*3/uL; Platelet Count 229 T/CUMM (130-400); Red Blood Count 2.57 MC/CUMM (3.8-5.5); Red Cell Distribution Width 18.5 % (9.3-17.3); White Blood Count 14.1 T/CUMM (4-12)
[2020-05-11 07:07] LABS: Albumin 1.5 G/DL (3.4-5.0); Bilirubin,Total 1.1 MG/DL (0.2-1.0); Calcium 7.6 MG/DL (8.5-10.1); Osmolality,Calculated 287.4 MOS/KG (273-304); Potassium 3.4 MMOL/L (3.5-5.1); Total Protein 5.4 G/DL (6.4-8.3)
[2020-05-11 07:31] LABS: Band Neutrophils 3 % (0-10); Eosinophils 2 % (0-10); Lymphocytes 13 % (20-55); Metamyelocytes 2 %; Myelocytes 1 %; Nucleated Red Blood Cells 2 (0-5); Segmented Neutrophils 74 % (50-85); Total Cells Counted 100
[2020-05-11 07:32] LABS: Anisocytosis 2+; Platelet Estimate Normal; Polychromasia Slight
[2020-05-11] MEDS: ZINC GLUCONATE 50 MG TABLET PO SCH (08:34)
[2020-05-11] MEDS: CHOLECALCIFEROL 1,000 UNIT TABLET PO SCH (08:34)
[2020-05-11] MEDS: SOTALOL 80 MG TABLET PO SCH ×2 (08:35→20:35)
[2020-05-11] MEDS: ASPIRIN CHEW 81 MG TABLET PO SCH (08:35)
[2020-05-11] MEDS: ASCORBIC ACID 500 MG TABLET PO SCH ×2 (08:35→20:36)
[2020-05-11] MEDS: POLYETHYLENE GLYCOL POWDER 17 GM PACK PO SCH (08:35)
[2020-05-11] MEDS: FAMOTIDINE 20 MG TABLET PO SCH ×2 (08:35→20:35)
[2020-05-11] MEDS: METOCLOPRAMIDE 5 MG TABLET PO SCH ×4 (08:35→20:34)
[2020-05-11 08:55] LABS: INR 1.7
[2020-05-11] MEDS ORDERED: POTASSIUM CHLORIDE 20 MEQ TABLET PO ONE (11:00)
[2020-05-11] MEDS: ENOXAPARIN 100 MG/ML SYRINGE SUBCUT SCH ×2 (11:15→20:36)
[2020-05-11] MEDS: WARFARIN 2.5 MG TABLET PO SCH (18:10)
[2020-05-11] MEDS: ATORVASTATIN 40 MG TABLET PO SCH (20:36)
[2020-05-12 06:30] LABS: Basophils % 0.3 % (0.0-0.8); Eosinophils # 0.5 10*3/uL (0.0-0.87); Eosinophils % 3.3 % (0.00-10.9); Hematocrit 26.1 VOL% (42.0-52.0); Hemoglobin 7.7 GM/DL (14.0-18.0); Immature Granulocytes Absolute 0.73 #; Lymphocytes # 1.2 10*3/uL (1.4-4.0); Mean Corpuscular HGB Conc 29.5 GM/DL (32-36); Mean Platelet Volume 12.1 FL (9.6-12.0); Monocytes % 9.4 % (1.7-12.7); NRBC # 0.03 10*3/uL; Platelet Count 244 T/CUMM (130-400); Red Blood Count 2.61 MC/CUMM (3.8-5.5); Red Cell Distribution Width 18.6 % (9.3-17.3); White Blood Count 14.6 T/CUMM (4-12)
[2020-05-12 06:40] LABS: INR 1.7; PT Patient Result 17.4 SECS (9.8-11.9)
[2020-05-12 06:52] LABS: Osmolality,Calculated 283.5 MOS/KG (273-304); Potassium 3.5 MMOL/L (3.5-5.1)
[2020-05-12 06:57] LABS: Eosinophils 4 % (0-10); Hypochromasia Slight; Lymphocytes 8 % (20-55); Platelet Estimate Normal; Segmented Neutrophils 81 % (50-85); Total Cells Counted 100
[2020-05-12 06:58] LABS: Macrocytosis Slight
[2020-05-12] MEDS: POTASSIUM CHLORIDE 20 MEQ/15 ML UDCUP PER TUBE PRN ×2 (08:33→11:50)
[2020-05-12] MEDS: CHOLECALCIFEROL 1,000 UNIT TABLET PO SCH (08:33)
[2020-05-12] MEDS: ASCORBIC ACID 500 MG TABLET PO SCH ×2 (08:33→20:34)
[2020-05-12] MEDS: ENOXAPARIN 100 MG/ML SYRINGE SUBCUT SCH ×2 (08:33→20:33)
[2020-05-12] MEDS: POLYETHYLENE GLYCOL POWDER 17 GM PACK PO SCH (08:34)
[2020-05-12] MEDS: ASPIRIN CHEW 81 MG TABLET PO SCH (08:34)
[2020-05-12] MEDS: METOCLOPRAMIDE 5 MG TABLET PO SCH ×4 (08:34→20:33)
[2020-05-12] MEDS: FAMOTIDINE 20 MG TABLET PO SCH ×2 (08:34→20:34)
[2020-05-12] MEDS: SOTALOL 80 MG TABLET PO SCH ×2 (08:34→20:33)
[2020-05-12] MEDS: ZINC GLUCONATE 50 MG TABLET PO SCH (08:35)
[2020-05-12] MEDS: POTASSIUM CHLORIDE 10 MEQ TABLET PO SCH ×2 (14:49→20:33)
[2020-05-12] MEDS: WARFARIN 2.5 MG TABLET PO SCH (17:03)
[2020-05-12] MEDS: ATORVASTATIN 40 MG TABLET PO SCH (20:34)
[2020-05-13 05:48] LABS: Basophils # 0.1 10*3/uL (0.0-0.2); Basophils % 0.3 % (0.0-0.8); Eosinophils # 0.4 10*3/uL (0.0-0.87); Eosinophils % 2.8 % (0.00-10.9); Hematocrit 24.9 VOL% (42.0-52.0); Hemoglobin 7.6 GM/DL (14.0-18.0); Immature Granulocytes % 4.6 %; Immature Granulocytes Absolute 0.72 #; Lymphocytes # 1.5 10*3/uL (1.4-4.0); Lymphocytes % 9.3 % (21.2-54.2); Mean Corpuscular HGB Conc 30.5 GM/DL (32-36); Mean Platelet Volume 11.7 FL (9.6-12.0); Monocytes % 9.6 % (1.7-12.7); NRBC # 0.04 10*3/uL; Neutrophils % 73.4 % (38.7-73.9); Platelet Count 255 T/CUMM (130-400); Red Blood Count 2.54 MC/CUMM (3.8-5.5); Red Cell Distribution Width 18.6 % (9.3-17.3); White Blood Count 15.6 T/CUMM (4-12)
[2020-05-13 06:09] LABS: Band Neutrophils 1 % (0-10); Eosinophils 5 % (0-10); Hypochromasia 1+; Lymphocytes 9 % (20-55); Microcytosis 1+; Ovalocytes Slight; Platelet Estimate Adequate; Segmented Neutrophils 80 % (50-85); Total Cells Counted 100
[2020-05-13 06:23] LABS: Calcium 8.4 MG/DL (8.5-10.1); Osmolality,Calculated 279.7 MOS/KG (273-304); Potassium 4.4 MMOL/L (3.5-5.1)
[2020-05-13] MEDS: SOTALOL 80 MG TABLET PO SCH (08:46)
[2020-05-13] MEDS: FAMOTIDINE 20 MG TABLET PO SCH (08:47)
[2020-05-13] MEDS: CHOLECALCIFEROL 1,000 UNIT TABLET PO SCH (08:47)
[2020-05-13] MEDS: ZINC GLUCONATE 50 MG TABLET PO SCH (08:47)
[2020-05-13] MEDS: ASPIRIN CHEW 81 MG TABLET PO SCH (08:47)
[2020-05-13] MEDS: POLYETHYLENE GLYCOL POWDER 17 GM PACK PO SCH (08:47)
[2020-05-13] MEDS: METOCLOPRAMIDE 5 MG TABLET PO SCH (08:47)
[2020-05-13] MEDS: POTASSIUM CHLORIDE 10 MEQ TABLET PO SCH (08:47)
[2020-05-13] MEDS: ASCORBIC ACID 500 MG TABLET PO SCH (08:47)
[2020-05-13] MEDS: ENOXAPARIN 100 MG/ML SYRINGE SUBCUT SCH (08:53)
[2020-05-13 09:57] LABS: PT Patient Result 19.7 SECS (9.8-11.9)
[2020-05-13] MEDS ORDERED: TUBERCULIN SKIN TEST 0.1 ML SYRINGE INTRADERM ONE (11:00)
[2020-05-13 11:57] VITALS: BP 104/51
== END 2020-05-13 12:15 | DRG 207 ==
LOC: N.ED 19:09 → SUATTDRO 21:40 → N.EDINP 21:40 → N.2E 22:55 → N.CC 04-11 22:34 → N.5E 04-27 16:09
PROVIDERS: ADMIT Internal Medicine; ATTEND Family Medicine

== ENCOUNTER 2020-12-13 12:55 | Inpatient (IN) ==
[2020-12-13 14:08] LABS: Basophils # 0.1 10*3/uL (0.0-0.2); Basophils % 0.9 % (0.0-0.8); Eosinophils # 0.3 10*3/uL (0.0-0.87); Eosinophils % 2.9 % (0.00-10.9); Hematocrit 38.1 VOL% (42.0-52.0); Hemoglobin 11.9 GM/DL (14.0-18.0); Immature Granulocytes % 0.7 %; Immature Granulocytes Absolute 0.07 #; Lymphocytes # 1.2 10*3/uL (1.4-4.0); Lymphocytes % 11.9 % (21.2-54.2); Mean Corpuscular HGB Conc 31.2 GM/DL (32-36); Mean Corpuscular Volume 93.4 FL (87-102); Mean Platelet Volume 12.2 FL (9.6-12.0); Neutrophils % 73.6 % (38.7-73.9); Platelet Count 264 T/CUMM (130-400); Red Blood Count 4.08 MC/CUMM (3.8-5.5); Red Cell Distribution Width 15.5 % (9.3-17.3); White Blood Count 9.7 T/CUMM (4-12)
[2020-12-13 14:26] LABS: Bilirubin,Total 0.9 MG/DL (0.20-1.00); Calcium 9.3 MG/DL (8.5-10.1); Osmolality,Calculated 278.5 MOS/KG (273-304); Total Protein 7.1 G/DL (6.4-8.2)
[2020-12-13 14:46] LABS: INR 1.7
[2020-12-13] MEDS ORDERED: AZITHROMYCIN INJ 500 MG in SODIUM CHLORIDE 0.9% 250 ML IV STA (14:53)
[2020-12-13] MEDS ORDERED: cefTRIAXone 1,000 MG in SODIUM CHLORIDE 0.9% 100 ML IV STA (14:53)
[2020-12-13] MEDS ORDERED: FUROSEMIDE 100 MG/10 ML VIAL IV STA (14:53)
[2020-12-13] MEDS ORDERED: ALBUTEROL 2.5 MG/3 ML NEB RESP TX STA (15:19)
[2020-12-13] MEDS ORDERED: ONDANSETRON 4 MG/2 ML VIAL IV PRN (16:36)
[2020-12-13] MEDS ORDERED: ACETAMINOPHEN 325 MG TABLET PO PRN (16:36)
[2020-12-13] MEDS ORDERED: FUROSEMIDE 40 MG/4 ML VIAL IV SCH (17:00)
[2020-12-13] MEDS ORDERED: ALBUTEROL 2.5 MG/3 ML NEB RESP TX SCH (17:00)
[2020-12-13] MEDS: ALBUTEROL 2.5 MG/3 ML NEB RESP TX SCH (20:23)
[2020-12-13] MEDS: METOCLOPRAMIDE 5 MG TABLET PO SCH (21:02)
[2020-12-13] MEDS: SOTALOL 80 MG TABLET PO SCH (21:02)
[2020-12-13] MEDS: DOCUSATE SODIUM 100 MG CAPSULE PO SCH (21:02)
[2020-12-13] MEDS: ATORVASTATIN 40 MG TABLET PO SCH (21:03)
[2020-12-14] MEDS: ALBUTEROL 2.5 MG/3 ML NEB RESP TX SCH ×4 (00:30→19:30)
[2020-12-14] MEDS ORDERED: METOPROLOL SUCCINATE XL 25 MG TABLET PO ONE (01:30)
[2020-12-14] MEDS ORDERED: METOPROLOL TARTRATE 5 MG/5 ML VIAL IV ONE (01:30)
[2020-12-14 06:50] LABS: Basophils # 0.1 10*3/uL (0.0-0.2); Basophils % 1.1 % (0.0-0.8); Eosinophils # 0.4 10*3/uL (0.0-0.87); Eosinophils % 3.4 % (0.00-10.9); Hematocrit 38.8 VOL% (42.0-52.0); Hemoglobin 12.1 GM/DL (14.0-18.0); Immature Granulocytes % 0.7 %; Immature Granulocytes Absolute 0.08 #; Lymphocytes # 1.9 10*3/uL (1.4-4.0); Lymphocytes % 17.2 % (21.2-54.2); Mean Corpuscular HGB Conc 31.2 GM/DL (32-36); Mean Corpuscular Volume 94.4 FL (87-102); Mean Platelet Volume 12.1 FL (9.6-12.0); Monocytes % 13.5 % (1.7-12.7); Neutrophils % 64.1 % (38.7-73.9); Platelet Count 286 T/CUMM (130-400); Red Blood Count 4.11 MC/CUMM (3.8-5.5); Red Cell Distribution Width 15.5 % (9.3-17.3)
[2020-12-14 07:17] LABS: Albumin 2.9 G/DL (3.4-5.0); Calcium 9.4 MG/DL (8.5-10.1); Osmolality,Calculated 280.4 MOS/KG (273-304); Potassium 4.2 MMOL/L (3.5-5.1)
[2020-12-14] MEDS: FUROSEMIDE 40 MG/4 ML VIAL IV SCH ×2 (09:45→15:53)
[2020-12-14] MEDS: DOCUSATE SODIUM 100 MG CAPSULE PO SCH ×2 (09:46→20:10)
[2020-12-14] MEDS: ASPIRIN EC 81 MG TABLET PO SCH (09:46)
[2020-12-14] MEDS: METOCLOPRAMIDE 5 MG TABLET PO SCH ×2 (09:46→20:10)
[2020-12-14] MEDS: RIVAROXABAN 20 MG TABLET PO SCH (09:46)
[2020-12-14] MEDS: PANTOPRAZOLE 40 MG TABLET PO SCH (09:46)
[2020-12-14] MEDS: SOTALOL 80 MG TABLET PO SCH ×2 (09:47→20:10)
[2020-12-14] MEDS: NITROGLYCERIN 2% OINT 1 INCH/GM PACK TOP SCH ×3 (12:10→19:05)
[2020-12-14] MEDS: ATORVASTATIN 40 MG TABLET PO SCH (20:10)
[2020-12-15] MEDS: ALBUTEROL 2.5 MG/3 ML NEB RESP TX SCH ×4 (00:25→20:00)
[2020-12-15] MEDS: NITROGLYCERIN 2% OINT 1 INCH/GM PACK TOP SCH ×4 (00:37→18:44)
[2020-12-15 06:09] LABS: Calcium 9.1 MG/DL (8.5-10.1); Osmolality,Calculated 277.7 MOS/KG (273-304); Potassium 3.7 MMOL/L (3.5-5.1)
[2020-12-15 06:15] LABS: Basophils # 0.1 10*3/uL (0.0-0.2); Basophils % 1.2 % (0.0-0.8); Eosinophils # 0.4 10*3/uL (0.0-0.87); Eosinophils % 3.6 % (0.00-10.9); Hemoglobin 11.8 GM/DL (14.0-18.0); Immature Granulocytes % 0.6 %; Immature Granulocytes Absolute 0.06 #; Lymphocytes # 1.4 10*3/uL (1.4-4.0); Lymphocytes % 12.7 % (21.2-54.2); Mean Corpuscular HGB Conc 31.1 GM/DL (32-36); Mean Corpuscular Volume 94.3 FL (87-102); Mean Platelet Volume 12.4 FL (9.6-12.0); Monocytes % 13.9 % (1.7-12.7); Platelet Count 286 T/CUMM (130-400); Red Blood Count 4.03 MC/CUMM (3.8-5.5); Red Cell Distribution Width 15.5 % (9.3-17.3); White Blood Count 10.7 T/CUMM (4-12)
[2020-12-15] MEDS: FUROSEMIDE 40 MG/4 ML VIAL IV SCH ×2 (08:57→15:17)
[2020-12-15] MEDS: DOCUSATE SODIUM 100 MG CAPSULE PO SCH ×2 (09:00→22:11)
[2020-12-15] MEDS: ASPIRIN EC 81 MG TABLET PO SCH (09:00)
[2020-12-15] MEDS: PANTOPRAZOLE 40 MG TABLET PO SCH (09:00)
[2020-12-15] MEDS: SOTALOL 80 MG TABLET PO SCH ×2 (09:00→22:11)
[2020-12-15] MEDS: METOCLOPRAMIDE 5 MG TABLET PO SCH ×2 (09:02→22:11)
[2020-12-15] MEDS: RIVAROXABAN 20 MG TABLET PO SCH (09:02)
[2020-12-15] MEDS ORDERED: LIDOCAINE 1% 20 ML VIAL ONE (09:26)
[2020-12-15] MEDS ORDERED: HEPARIN/NACL 0.9% 2 UNITS/ML 0 UNIT/0 ML BAG IV ONE (09:26)
[2020-12-15] MEDS: SODIUM CHLORIDE 0.45% 1,000 ML IV SCH ×2 (15:16→18:38)
[2020-12-15] MEDS: ATORVASTATIN 40 MG TABLET PO SCH (22:11)
[2020-12-16] MEDS: SODIUM CHLORIDE 0.45% 1,000 ML IV SCH (00:10)
[2020-12-16] MEDS: ALBUTEROL 2.5 MG/3 ML NEB RESP TX SCH ×4 (01:50→20:10)
[2020-12-16 05:38] LABS: Basophils # 0.1 10*3/uL (0.0-0.2); Basophils % 0.7 % (0.0-0.8); Eosinophils # 0.4 10*3/uL (0.0-0.87); Eosinophils % 4.1 % (0.00-10.9); Hematocrit 37.5 VOL% (42.0-52.0); Hemoglobin 12.1 GM/DL (14.0-18.0); Immature Granulocytes % 0.6 %; Immature Granulocytes Absolute 0.06 #; Lymphocytes # 1.5 10*3/uL (1.4-4.0); Lymphocytes % 14.1 % (21.2-54.2); Mean Corpuscular HGB Conc 32.3 GM/DL (32-36); Mean Corpuscular Volume 93.3 FL (87-102); Monocytes % 14.7 % (1.7-12.7); Neutrophils % 65.8 % (38.7-73.9); Platelet Count 254 T/CUMM (130-400); Red Blood Count 4.02 MC/CUMM (3.8-5.5); Red Cell Distribution Width 15.6 % (9.3-17.3); White Blood Count 10.9 T/CUMM (4-12)
[2020-12-16 05:55] LABS: Osmolality,Calculated 275.8 MOS/KG (273-304); Potassium 3.4 MMOL/L (3.5-5.1)
[2020-12-16] MEDS: NITROGLYCERIN 2% OINT 1 INCH/GM PACK TOP SCH ×5 (06:17→23:43)
[2020-12-16] MEDS: SOTALOL 80 MG TABLET PO SCH ×2 (09:57→20:23)
[2020-12-16] MEDS: METOCLOPRAMIDE 5 MG TABLET PO SCH ×2 (09:57→20:23)
[2020-12-16] MEDS: FUROSEMIDE 40 MG/4 ML VIAL IV SCH ×2 (09:57→16:56)
[2020-12-16] MEDS: DOCUSATE SODIUM 100 MG CAPSULE PO SCH ×2 (09:58→20:23)
[2020-12-16] MEDS: ASPIRIN EC 81 MG TABLET PO SCH (09:58)
[2020-12-16] MEDS: PANTOPRAZOLE 40 MG TABLET PO SCH (09:58)
[2020-12-16] MEDS: ACETYLCYSTEINE 600 MG CAPSULE PO SCH ×2 (11:17→20:23)
[2020-12-16] MEDS ORDERED: POTASSIUM CHLORIDE 20 MEQ TABLET PO ONE (12:26)
[2020-12-16] MEDS: ALUMINUM/MAGNES/SIMETH MAX STR 30 ML UDCUP PO PRN ×2 (14:51→21:53)
[2020-12-16] MEDS: FAMOTIDINE 20 MG TABLET PO SCH (14:51)
[2020-12-16] MEDS: ATORVASTATIN 40 MG TABLET PO SCH (20:23)
[2020-12-17] MEDS: ALBUTEROL 2.5 MG/3 ML NEB RESP TX SCH ×4 (00:52→19:55)
[2020-12-17] MEDS: NITROGLYCERIN 2% OINT 1 INCH/GM PACK TOP SCH ×4 (05:30→23:14)
[2020-12-17 06:03] LABS: Basophils # 0.1 10*3/uL (0.0-0.2); Basophils % 0.6 % (0.0-0.8); Eosinophils # 0.3 10*3/uL (0.0-0.87); Eosinophils % 3.2 % (0.00-10.9); Hematocrit 36.4 VOL% (42.0-52.0); Hemoglobin 11.5 GM/DL (14.0-18.0); Immature Granulocytes % 0.6 %; Immature Granulocytes Absolute 0.06 #; Lymphocytes # 1.4 10*3/uL (1.4-4.0); Lymphocytes % 12.9 % (21.2-54.2); Mean Corpuscular HGB Conc 31.6 GM/DL (32-36); Mean Corpuscular Volume 94.3 FL (87-102); Mean Platelet Volume 12.6 FL (9.6-12.0); Monocytes % 13.3 % (1.7-12.7); Neutrophils % 69.4 % (38.7-73.9); Platelet Count 241 T/CUMM (130-400); Red Blood Count 3.86 MC/CUMM (3.8-5.5); Red Cell Distribution Width 15.7 % (9.3-17.3); White Blood Count 10.6 T/CUMM (4-12)
[2020-12-17 06:25] LABS: Calcium 8.8 MG/DL (8.5-10.1); Osmolality,Calculated 280.4 MOS/KG (273-304); Potassium 3.5 MMOL/L (3.5-5.1)
[2020-12-17] MEDS ORDERED: TUBERCULIN SKIN TEST 0.1 ML SYRINGE INTRADERM ONE (08:48)
[2020-12-17] MEDS: SOTALOL 80 MG TABLET PO SCH ×2 (09:48→20:36)
[2020-12-17] MEDS: DOCUSATE SODIUM 100 MG CAPSULE PO SCH ×2 (09:48→20:35)
[2020-12-17] MEDS: ASPIRIN EC 81 MG TABLET PO SCH (09:48)
[2020-12-17] MEDS: FAMOTIDINE 20 MG TABLET PO SCH (09:48)
[2020-12-17] MEDS: ACETYLCYSTEINE 600 MG CAPSULE PO SCH ×2 (09:48→20:36)
[2020-12-17] MEDS: PANTOPRAZOLE 40 MG TABLET PO SCH (09:49)
[2020-12-17] MEDS: METOCLOPRAMIDE 5 MG TABLET PO SCH ×2 (09:49→20:36)
[2020-12-17] MEDS: RIVAROXABAN 20 MG TABLET PO SCH (09:49)
[2020-12-17] MEDS: FUROSEMIDE 40 MG/4 ML VIAL IV SCH ×2 (09:50→17:24)
[2020-12-17] MEDS: ATORVASTATIN 40 MG TABLET PO SCH (20:36)
[2020-12-18] MEDS: ALBUTEROL 2.5 MG/3 ML NEB RESP TX SCH ×2 (01:25→08:15)
[2020-12-18] MEDS: NITROGLYCERIN 2% OINT 1 INCH/GM PACK TOP SCH (05:13)
[2020-12-18] MEDS: RIVAROXABAN 20 MG TABLET PO SCH (10:15)
[2020-12-18] MEDS: ACETYLCYSTEINE 600 MG CAPSULE PO SCH (10:15)
[2020-12-18] MEDS: PANTOPRAZOLE 40 MG TABLET PO SCH (10:15)
[2020-12-18] MEDS: METOCLOPRAMIDE 5 MG TABLET PO SCH (10:15)
[2020-12-18] MEDS: ASPIRIN EC 81 MG TABLET PO SCH (10:15)
[2020-12-18] MEDS: SOTALOL 80 MG TABLET PO SCH (10:16)
[2020-12-18] MEDS: FUROSEMIDE 40 MG/4 ML VIAL IV SCH (10:16)
[2020-12-18] MEDS: FAMOTIDINE 20 MG TABLET PO SCH (10:16)
[2020-12-18] MEDS: DOCUSATE SODIUM 100 MG CAPSULE PO SCH (10:16)
[2020-12-18 12:58] VITALS: BP 127/79
== END 2020-12-18 13:00 | DRG 291 ==
LOC: N.ED 12:55 → N.EDINP 16:36 → N.TELEN 19:31
PROVIDERS: ADMIT Internal Medicine; ATTEND Internal Medicine

== ENCOUNTER 2021-07-30 20:31 | Inpatient (IN) ==
[2021-07-30 21:41] LABS: Basophils # 0.1 10*3/uL (0.0-0.2); Basophils % 0.6 % (0.0-0.8); Eosinophils # 0.2 10*3/uL (0.0-0.87); Eosinophils % 1.1 % (0.00-10.9); Hematocrit 39.7 VOL% (42.0-52.0); Hemoglobin 13.4 GM/DL (14.0-18.0); Immature Granulocytes % 0.8 %; Immature Granulocytes Absolute 0.11 #; Lymphocytes # 1.4 10*3/uL (1.4-4.0); Lymphocytes % 9.4 % (21.2-54.2); Mean Corpuscular HGB Conc 33.8 GM/DL (32-36); Mean Corpuscular Volume 90.8 FL (87-102); Mean Platelet Volume 12.4 FL (9.6-12.0); Monocytes # 1.2 10*3/uL (0.11-0.8); Neutrophils % 80.1 % (38.7-73.9); Platelet Count 270 T/CUMM (130-400); Red Blood Count 4.37 MC/CUMM (3.8-5.5); Red Cell Distribution Width 13.5 % (9.3-17.3); White Blood Count 14.6 T/CUMM (4-12)
[2021-07-30 21:55] LABS: Calcium 10.1 MG/DL (8.5-10.1); Osmolality,Calculated 288.6 MOS/KG (273-304); Potassium 4.2 MMOL/L (3.5-5.1)
[2021-07-30] MEDS ORDERED: INSULIN REGULAR 100 UNIT/ML IV STA (21:59)
[2021-07-30] MEDS ORDERED: SODIUM CHLORIDE 0.9% 1,000 ML IV STA ×2 (22:12→23:03)
[2021-07-30 22:22] LABS: Arterial Base Excess iSTAT 0 MMOL/L (-2.5-2.5); Arterial Bicarbonate iSTAT 23.9 MMOL/L (20-26); Arterial O2 Saturation iSTAT 97 % (95-100); Arterial PCO2 iSTAT 35 MM HG (35-48); Arterial PO2 iSTAT 86 MM HG (80-95); Arterial Total CO2 iSTAT 25 MMO/L (23-27); Arterial pH iSTAT 7.445 (7.35-7.45)
[2021-07-30] MEDS ORDERED: AZITHROMYCIN INJ 500 MG in SODIUM CHLORIDE 0.9% 250 ML IV STA (22:36)
[2021-07-30] MEDS ORDERED: cefTRIAXone 1,000 MG in SODIUM CHLORIDE 0.9% 100 ML IV STA (22:36)
[2021-07-30] MEDS ORDERED: ONDANSETRON 4 MG/2 ML VIAL IV STA (22:43)
[2021-07-30] MEDS ORDERED: MORPHINE 2 MG/1 ML SYRINGE IV STA (22:43)
[2021-07-31 00:21] LABS: Bacteria,Urine Occasional /HPF (Few); Mucus,Urine Occasional /LPF (Occasional); RBC,Urine 2 /HPF (0-4); Urine Appearance Clear (Clear); Urine Color Yellow (Yellow); Urine pH 5.5 (4.5-8.0)
[2021-07-31 00:22] LABS: Bilirubin,Urine Negative (Negative); Blood, Urine Trace mg/dL (Negative); Glucose,Urine (UA) >=1000 mg/dL (Negative); Ketones,Urine Negative (Negative); Nitrite,Urine Negative (Negative); Protein,Urine Negative (Negative); Urine Urobilinogen 0.2 eU/dL (<2.0)
[2021-07-31 00:56] LABS: Albumin 2.7 G/DL (3.4-5.0); Bilirubin,Total 0.6 MG/DL (0.20-1.00); Calcium 9.4 MG/DL (8.5-10.1); Osmolality,Calculated 284.8 MOS/KG (273-304); Potassium 3.9 MMOL/L (3.5-5.1); Total Protein 6.7 G/DL (6.4-8.2)
[2021-07-31] MEDS ORDERED: DEXTROSE 10% 250 ML BAG IV PRN (01:03)
[2021-07-31] MEDS ORDERED: ONDANSETRON 4 MG/2 ML VIAL IV PRN (01:03)
[2021-07-31] MEDS ORDERED: GLUCAGON 1 MG VIAL IM PRN (01:03)
[2021-07-31] MEDS: SODIUM CHLORIDE 0.9% 1,000 ML IV SCH ×2 (01:18→12:44)
[2021-07-31] MEDS: INSULIN REGULAR 100 UNIT/ML SUBCUT SCH ×5 (06:21→22:00)
[2021-07-31] MEDS: PANTOPRAZOLE 40 MG TABLET PO SCH (09:46)
[2021-07-31] MEDS ORDERED: ALBUTEROL/IPRATROPIUM 3 ML NEB RESP TX PRN (12:51)
[2021-07-31] MEDS ORDERED: MAGNESIUM SULF RIDER 2 GM/50 ML PREMIX IV PRN (16:45)
[2021-07-31] MEDS ORDERED: MAGNESIUM SULF RIDER 4 GM/100 ML PREMIX IV PRN (16:45)
[2021-07-31] MEDS ORDERED: POTASSIUM CHLORIDE RIDER 10 MEQ/100 ML PREMIX IV PRN (16:45)
[2021-07-31] MEDS ORDERED: POTASSIUM CHLORIDE 20 MEQ TABLET PO PRN (16:45)
[2021-07-31 17:15] LABS: Basophils # 0.1 10*3/uL (0.0-0.2); Basophils % 0.8 % (0.0-0.8); Eosinophils # 0.5 10*3/uL (0.0-0.87); Hematocrit 36.6 VOL% (42.0-52.0); Hemoglobin 12.3 GM/DL (14.0-18.0); Immature Granulocytes % 0.7 %; Immature Granulocytes Absolute 0.08 #; Lymphocytes # 2.1 10*3/uL (1.4-4.0); Lymphocytes % 17.8 % (21.2-54.2); Mean Corpuscular HGB Conc 33.6 GM/DL (32-36); Mean Corpuscular Volume 91.7 FL (87-102); Mean Platelet Volume 11.8 FL (9.6-12.0); Monocytes # 1.1 10*3/uL (0.11-0.8); Monocytes % 9.4 % (1.7-12.7); Neutrophils % 67.3 % (38.7-73.9); Platelet Count 222 T/CUMM (130-400); Red Blood Count 3.99 MC/CUMM (3.8-5.5); Red Cell Distribution Width 13.6 % (9.3-17.3); White Blood Count 11.5 T/CUMM (4-12)
[2021-07-31 17:27] LABS: Calcium 9.3 MG/DL (8.5-10.1); Osmolality,Calculated 280.2 MOS/KG (273-304); Potassium 3.7 MMOL/L (3.5-5.1)
[2021-07-31] MEDS: NITROGLYCERIN 2% OINT 1 INCH/GM PACK TOP SCH ×2 (18:12→23:48)
[2021-07-31] MEDS ORDERED: PNEUMOCOCCAL VACCINE (13 VALENT) 0.5 ML SYRINGE IM ONE (19:19)
[2021-07-31] MEDS: METOCLOPRAMIDE 5 MG TABLET PO SCH (21:45)
[2021-07-31] MEDS: POTASSIUM CHLORIDE 10 MEQ TABLET PO SCH (21:45)
[2021-07-31] MEDS: SOTALOL 80 MG TABLET PO SCH (21:45)
[2021-07-31] MEDS: ATORVASTATIN 40 MG TABLET PO SCH (21:45)
[2021-07-31] MEDS: INSULIN GLARGINE 100 UNIT/ML SUBCUT SCH (21:46)
[2021-07-31] MEDS: cefTRIAXone 1,000 MG in SODIUM CHLORIDE 0.9% 100 ML IV SCH (21:46)
[2021-07-31] MEDS: AZITHROMYCIN INJ 500 MG in SODIUM CHLORIDE 0.9% 250 ML IV SCH (23:48)
[2021-08-01] MEDS: SODIUM CHLORIDE 0.9% 1,000 ML IV SCH ×2 (01:00→21:05)
[2021-08-01] MEDS: INSULIN REGULAR 100 UNIT/ML SUBCUT SCH ×5 (04:10→21:34)
[2021-08-01 05:34] LABS: Basophils # 0.1 10*3/uL (0.0-0.2); Basophils % 0.8 % (0.0-0.8); Eosinophils # 0.5 10*3/uL (0.0-0.87); Eosinophils % 4.1 % (0.00-10.9); Hematocrit 35.7 VOL% (42.0-52.0); Hemoglobin 11.9 GM/DL (14.0-18.0); Immature Granulocytes % 0.8 %; Immature Granulocytes Absolute 0.09 #; Lymphocytes # 2.1 10*3/uL (1.4-4.0); Lymphocytes % 18.6 % (21.2-54.2); Mean Corpuscular HGB Conc 33.3 GM/DL (32-36); Mean Platelet Volume 11.9 FL (9.6-12.0); Monocytes # 0.9 10*3/uL (0.11-0.8); Monocytes % 8.3 % (1.7-12.7); Neutrophils % 67.4 % (38.7-73.9); Platelet Count 212 T/CUMM (130-400); Red Blood Count 3.88 MC/CUMM (3.8-5.5); Red Cell Distribution Width 13.8 % (9.3-17.3); White Blood Count 11.2 T/CUMM (4-12)
[2021-08-01 05:54] LABS: Albumin 2.5 G/DL (3.4-5.0); Bilirubin,Total 0.5 MG/DL (0.20-1.00); Calcium 9.6 MG/DL (8.5-10.1); Osmolality,Calculated 280.5 MOS/KG (273-304); Potassium 3.8 MMOL/L (3.5-5.1); Total Protein 6.4 G/DL (6.4-8.2)
[2021-08-01] MEDS: NITROGLYCERIN 2% OINT 1 INCH/GM PACK TOP SCH ×3 (06:03→17:01)
[2021-08-01] MEDS ORDERED: PANTOPRAZOLE 40 MG TABLET PO SCH (09:00)
[2021-08-01] MEDS: POTASSIUM CHLORIDE 10 MEQ TABLET PO SCH ×2 (09:48→21:31)
[2021-08-01] MEDS: FUROSEMIDE 40 MG TABLET PO SCH (09:48)
[2021-08-01] MEDS: PANTOPRAZOLE 40 MG TABLET PO SCH (09:48)
[2021-08-01] MEDS: ASPIRIN EC 81 MG TABLET PO SCH (09:48)
[2021-08-01] MEDS: SOTALOL 80 MG TABLET PO SCH ×2 (09:48→21:32)
[2021-08-01] MEDS: METOCLOPRAMIDE 5 MG TABLET PO SCH ×2 (11:10→21:32)
[2021-08-01] MEDS: RIVAROXABAN 20 MG TABLET PO SCH (11:10)
[2021-08-01] MEDS: ATORVASTATIN 40 MG TABLET PO SCH (21:32)
[2021-08-01] MEDS: INSULIN GLARGINE 100 UNIT/ML SUBCUT SCH (21:34)
[2021-08-01] MEDS: cefTRIAXone 1,000 MG in SODIUM CHLORIDE 0.9% 100 ML IV SCH (21:35)
[2021-08-01] MEDS: AZITHROMYCIN INJ 500 MG in SODIUM CHLORIDE 0.9% 250 ML IV SCH (23:45)
[2021-08-02] MEDS: NITROGLYCERIN 2% OINT 1 INCH/GM PACK TOP SCH ×4 (00:15→18:02)
[2021-08-02] MEDS: INSULIN REGULAR 100 UNIT/ML SUBCUT SCH ×6 (04:30→21:47)
[2021-08-02 04:57] LABS: Basophils # 0.1 10*3/uL (0.0-0.2); Basophils % 0.9 % (0.0-0.8); Eosinophils # 0.5 10*3/uL (0.0-0.87); Eosinophils % 4.5 % (0.00-10.9); Hematocrit 34.8 VOL% (42.0-52.0); Hemoglobin 11.4 GM/DL (14.0-18.0); Immature Granulocytes % 0.9 %; Immature Granulocytes Absolute 0.11 #; Lymphocytes % 16.9 % (21.2-54.2); Mean Corpuscular HGB Conc 32.8 GM/DL (32-36); Mean Corpuscular Volume 93.5 FL (87-102); Mean Platelet Volume 12.6 FL (9.6-12.0); Monocytes # 1.1 10*3/uL (0.11-0.8); Monocytes % 9.6 % (1.7-12.7); Neutrophils % 67.2 % (38.7-73.9); Platelet Count 215 T/CUMM (130-400); Red Blood Count 3.72 MC/CUMM (3.8-5.5); Red Cell Distribution Width 13.8 % (9.3-17.3); White Blood Count 11.8 T/CUMM (4-12)
[2021-08-02 05:29] LABS: Albumin 2.3 G/DL (3.4-5.0); Bilirubin,Total 0.4 MG/DL (0.20-1.00); Calcium 9.3 MG/DL (8.5-10.1); Osmolality,Calculated 279.5 MOS/KG (273-304); Potassium 3.7 MMOL/L (3.5-5.1); Total Protein 6.3 G/DL (6.4-8.2)
[2021-08-02] MEDS: SOTALOL 80 MG TABLET PO SCH ×2 (10:31→21:47)
[2021-08-02] MEDS: RIVAROXABAN 20 MG TABLET PO SCH (10:31)
[2021-08-02] MEDS: PANTOPRAZOLE 40 MG TABLET PO SCH (10:31)
[2021-08-02] MEDS: POTASSIUM CHLORIDE 10 MEQ TABLET PO SCH ×2 (10:31→21:47)
[2021-08-02] MEDS: FUROSEMIDE 40 MG TABLET PO SCH (10:32)
[2021-08-02] MEDS: ASPIRIN EC 81 MG TABLET PO SCH (10:32)
[2021-08-02] MEDS: METOCLOPRAMIDE 5 MG TABLET PO SCH ×2 (10:32→21:47)
[2021-08-02] MEDS ORDERED: ACETAMINOPHEN 325 MG TABLET PO PRN (14:06)
[2021-08-02] MEDS: SODIUM CHLORIDE 0.9% 1,000 ML IV SCH (17:59)
[2021-08-02] MEDS: ATORVASTATIN 40 MG TABLET PO SCH (21:47)
[2021-08-02] MEDS: INSULIN GLARGINE 100 UNIT/ML SUBCUT SCH (21:48)
[2021-08-02] MEDS: cefTRIAXone 1,000 MG in SODIUM CHLORIDE 0.9% 100 ML IV SCH (21:48)
[2021-08-02] MEDS: AZITHROMYCIN INJ 500 MG in SODIUM CHLORIDE 0.9% 250 ML IV SCH (23:43)
[2021-08-03] MEDS: NITROGLYCERIN 2% OINT 1 INCH/GM PACK TOP SCH ×4 (00:42→17:47)
[2021-08-03] MEDS: INSULIN REGULAR 100 UNIT/ML SUBCUT SCH ×6 (05:06→22:04)
[2021-08-03 05:34] LABS: Basophils # 0.1 10*3/uL (0.0-0.2); Basophils % 0.8 % (0.0-0.8); Eosinophils # 0.6 10*3/uL (0.0-0.87); Eosinophils % 4.5 % (0.00-10.9); Hematocrit 37.2 VOL% (42.0-52.0); Hemoglobin 12.4 GM/DL (14.0-18.0); Immature Granulocytes Absolute 0.13 #; Lymphocytes % 15.3 % (21.2-54.2); Mean Corpuscular HGB Conc 33.3 GM/DL (32-36); Mean Corpuscular Volume 92.5 FL (87-102); Mean Platelet Volume 12.2 FL (9.6-12.0); Monocytes # 1.3 10*3/uL (0.11-0.8); Neutrophils % 68.4 % (38.7-73.9); Platelet Count 259 T/CUMM (130-400); Red Blood Count 4.02 MC/CUMM (3.8-5.5); Red Cell Distribution Width 13.9 % (9.3-17.3); White Blood Count 13.2 T/CUMM (4-12)
[2021-08-03 05:47] LABS: Calcium 8.8 MG/DL (8.5-10.1); Osmolality,Calculated 279.5 MOS/KG (273-304); Potassium 3.6 MMOL/L (3.5-5.1)
[2021-08-03] MEDS: POTASSIUM CHLORIDE 10 MEQ TABLET PO SCH ×2 (10:03→21:20)
[2021-08-03] MEDS: SOTALOL 80 MG TABLET PO SCH ×2 (10:04→21:20)
[2021-08-03] MEDS: ASPIRIN EC 81 MG TABLET PO SCH (10:04)
[2021-08-03] MEDS: METOCLOPRAMIDE 5 MG TABLET PO SCH ×2 (10:05→21:20)
[2021-08-03] MEDS: GLIMEPIRIDE 2 MG TABLET PO SCH (10:05)
[2021-08-03] MEDS: FUROSEMIDE 40 MG TABLET PO SCH (10:06)
[2021-08-03] MEDS: RIVAROXABAN 20 MG TABLET PO SCH (10:06)
[2021-08-03] MEDS: PANTOPRAZOLE 40 MG TABLET PO SCH (10:06)
[2021-08-03] MEDS: SODIUM CHLORIDE 0.9% 1,000 ML IV SCH (14:18)
[2021-08-03] MEDS: ATORVASTATIN 40 MG TABLET PO SCH (21:20)
[2021-08-03] MEDS: INSULIN GLARGINE 100 UNIT/ML SUBCUT SCH (21:21)
[2021-08-03] MEDS: cefTRIAXone 1,000 MG in SODIUM CHLORIDE 0.9% 100 ML IV SCH (21:21)
[2021-08-03] MEDS: AZITHROMYCIN INJ 500 MG in SODIUM CHLORIDE 0.9% 250 ML IV SCH (22:57)
[2021-08-04] MEDS: NITROGLYCERIN 2% OINT 1 INCH/GM PACK TOP SCH ×5 (00:39→17:45)
[2021-08-04] MEDS: INSULIN REGULAR 100 UNIT/ML SUBCUT SCH ×6 (01:54→21:44)
[2021-08-04 05:03] LABS: Basophils # 0.1 10*3/uL (0.0-0.2); Basophils % 0.6 % (0.0-0.8); Eosinophils # 0.5 10*3/uL (0.0-0.87); Eosinophils % 4.1 % (0.00-10.9); Hematocrit 36.4 VOL% (42.0-52.0); Immature Granulocytes % 0.8 %; Immature Granulocytes Absolute 0.09 #; Lymphocytes # 1.6 10*3/uL (1.4-4.0); Lymphocytes % 14.1 % (21.2-54.2); Mean Corpuscular Volume 93.1 FL (87-102); Mean Platelet Volume 12.6 FL (9.6-12.0); Monocytes % 8.5 % (1.7-12.7); Neutrophils % 71.9 % (38.7-73.9); Platelet Count 222 T/CUMM (130-400); Red Blood Count 3.91 MC/CUMM (3.8-5.5); White Blood Count 11.6 T/CUMM (4-12)
[2021-08-04 05:20] LABS: Osmolality,Calculated 282.3 MOS/KG (273-304); Potassium 3.5 MMOL/L (3.5-5.1)
[2021-08-04] MEDS: SOTALOL 80 MG TABLET PO SCH ×2 (10:27→21:26)
[2021-08-04] MEDS: POTASSIUM CHLORIDE 10 MEQ TABLET PO SCH ×2 (10:27→21:26)
[2021-08-04] MEDS: FUROSEMIDE 40 MG TABLET PO SCH (10:27)
[2021-08-04] MEDS: PANTOPRAZOLE 40 MG TABLET PO SCH (10:27)
[2021-08-04] MEDS: ASPIRIN EC 81 MG TABLET PO SCH (10:27)
[2021-08-04] MEDS: METOCLOPRAMIDE 5 MG TABLET PO SCH ×2 (10:27→21:26)
[2021-08-04] MEDS: GLIMEPIRIDE 2 MG TABLET PO SCH (10:27)
[2021-08-04] MEDS: RIVAROXABAN 20 MG TABLET PO SCH (10:28)
[2021-08-04] MEDS: SODIUM CHLORIDE 0.9% 1,000 ML IV SCH (16:57)
[2021-08-04] MEDS: BISACODYL 5 MG TABLET PO SCH (21:26)
[2021-08-04] MEDS: ATORVASTATIN 40 MG TABLET PO SCH (21:26)
[2021-08-04] MEDS: cefTRIAXone 1,000 MG in SODIUM CHLORIDE 0.9% 100 ML IV SCH (21:32)
[2021-08-04] MEDS: INSULIN GLARGINE 100 UNIT/ML SUBCUT SCH (21:43)
[2021-08-04] MEDS: AZITHROMYCIN INJ 500 MG in SODIUM CHLORIDE 0.9% 250 ML IV SCH (22:55)
[2021-08-05] MEDS: NITROGLYCERIN 2% OINT 1 INCH/GM PACK TOP SCH ×4 (00:29→17:33)
[2021-08-05] MEDS: INSULIN REGULAR 100 UNIT/ML SUBCUT SCH ×6 (01:18→22:35)
[2021-08-05] MEDS: BISACODYL 5 MG TABLET PO SCH ×3 (06:13→22:37)
[2021-08-05] MEDS: SODIUM CHLORIDE 0.9% 1,000 ML IV SCH ×2 (07:43→14:34)
[2021-08-05] MEDS: ASPIRIN EC 81 MG TABLET PO SCH (08:53)
[2021-08-05] MEDS: FUROSEMIDE 40 MG TABLET PO SCH (08:53)
[2021-08-05] MEDS: METOCLOPRAMIDE 5 MG TABLET PO SCH ×2 (08:54→22:36)
[2021-08-05] MEDS: POTASSIUM CHLORIDE 10 MEQ TABLET PO SCH ×2 (08:54→22:36)
[2021-08-05] MEDS: GLIMEPIRIDE 2 MG TABLET PO SCH (08:54)
[2021-08-05] MEDS: PANTOPRAZOLE 40 MG TABLET PO SCH (08:54)
[2021-08-05] MEDS: RIVAROXABAN 20 MG TABLET PO SCH (08:54)
[2021-08-05] MEDS: SOTALOL 80 MG TABLET PO SCH ×2 (08:54→22:37)
[2021-08-05] MEDS: cefTRIAXone 1,000 MG in SODIUM CHLORIDE 0.9% 100 ML IV SCH (22:36)
[2021-08-05] MEDS: INSULIN GLARGINE 100 UNIT/ML SUBCUT SCH (22:36)
[2021-08-05] MEDS: ATORVASTATIN 40 MG TABLET PO SCH (22:37)
[2021-08-05] MEDS: AZITHROMYCIN INJ 500 MG in SODIUM CHLORIDE 0.9% 250 ML IV SCH (23:30)
[2021-08-06] MEDS: NITROGLYCERIN 2% OINT 1 INCH/GM PACK TOP SCH ×4 (01:25→17:10)
[2021-08-06] MEDS: INSULIN REGULAR 100 UNIT/ML SUBCUT SCH ×5 (01:25→15:52)
[2021-08-06] MEDS: SODIUM CHLORIDE 0.9% 1,000 ML IV SCH (03:09)
[2021-08-06 06:00] LABS: Basophils # 0.1 10*3/uL (0.0-0.2); Basophils % 0.6 % (0.0-0.8); Eosinophils # 0.4 10*3/uL (0.0-0.87); Eosinophils % 3.1 % (0.00-10.9); Hematocrit 37.2 VOL% (42.0-52.0); Hemoglobin 12.3 GM/DL (14.0-18.0); Immature Granulocytes Absolute 0.12 #; Lymphocytes # 1.5 10*3/uL (1.4-4.0); Lymphocytes % 12.8 % (21.2-54.2); Mean Corpuscular HGB Conc 33.1 GM/DL (32-36); Mean Corpuscular Volume 93.2 FL (87-102); Mean Platelet Volume 12.2 FL (9.6-12.0); Monocytes # 0.9 10*3/uL (0.11-0.8); Monocytes % 7.2 % (1.7-12.7); Neutrophils % 75.3 % (38.7-73.9); Platelet Count 237 T/CUMM (130-400); Red Blood Count 3.99 MC/CUMM (3.8-5.5); Red Cell Distribution Width 13.8 % (9.3-17.3)
[2021-08-06] MEDS: BISACODYL 5 MG TABLET PO SCH ×2 (06:04→13:40)
[2021-08-06 06:17] LABS: Calcium 9.6 MG/DL (8.5-10.1); Osmolality,Calculated 276.7 MOS/KG (273-304); Potassium 3.8 MMOL/L (3.5-5.1)
[2021-08-06] MEDS: SOTALOL 80 MG TABLET PO SCH (09:01)
[2021-08-06] MEDS: POTASSIUM CHLORIDE 10 MEQ TABLET PO SCH (09:01)
[2021-08-06] MEDS: METOCLOPRAMIDE 5 MG TABLET PO SCH (09:01)
[2021-08-06] MEDS: ASPIRIN EC 81 MG TABLET PO SCH (09:01)
[2021-08-06] MEDS: PANTOPRAZOLE 40 MG TABLET PO SCH (09:01)
[2021-08-06] MEDS: GLIMEPIRIDE 2 MG TABLET PO SCH (09:02)
[2021-08-06] MEDS: RIVAROXABAN 20 MG TABLET PO SCH (09:02)
[2021-08-06] MEDS: FUROSEMIDE 40 MG TABLET PO SCH (09:02)
[2021-08-06 15:47] VITALS: BP 119/78
== END 2021-08-06 18:01 | disposition home health service (06) | DRG 191 ==
LOC: N.ED 20:31 → N.EDINP 07-31 01:17 → N.TELES 07-31 01:21
PROVIDERS: ADMIT Family Medicine; ATTEND Family Medicine